=== PATIENT | male | born 1940 | race Caucasian/White ===

== ENCOUNTER 2017-09-15 09:47 | Outpatient (CLI) | payer MEDICARE ==
--- NOTE | 2017-09-15 11:50 | ULT ---
ULTRASOUND ABDOMINAL AORTA: Date: 09/15/17 HISTORY: Screening for abdominal aortic aneurysm. Patient is a smoker. FINDINGS: The proximal aorta measures 2.7 x 1.2 cm, mid aorta 1.7 x 1.9 cm, and distal aorta 1.2 x 1.9 cm. The common iliac arteries also demonstrate no abnormal dilatation. IMPRESSION: No evidence of abdominal aortic aneurysm. POS: OFF
== END 2017-09-15 09:48 | disposition home or self-care (01) ==
LOC: SCSULT 09:47
PROVIDERS: ATTEND Family Medicine
DX: Z13.6 Encounter for screening for cardiovascular disorders (principal); Z00.00 Encounter for general adult medical examination without abnormal findings
CPT/HCPCS: 76775

== ENCOUNTER 2018-07-30 08:45 | Inpatient (IN) | payer MEDICARE ==
[2018-07-30] MEDS ORDERED: hydrALAZINE 20 MG/ML VIAL ONE ×2 (09:03→10:16)
[2018-07-30 09:21] LABS: #Basophils 0.1 thou/uL (0.0-0.2); #Lymphocytes 4.3 thou/uL (1.20-3.40); #Monocytes 0.6 thou/uL (0.11-0.59); #Neutrophils 3.7 thou/uL (1.40-6.50); %Basophils 0.6 % (0.0-1.0); %Eosinophils 0.5 % (0.0-10.0); %Lymphocytes 49.9 % (21.0-51.0); %Monocytes 6.6 % (0.0-10.0); %Neutrophils 42.4 % (42.0-75.0); Hemoglobin 14.9 g/dL (14.0-18.0); Mean Corpuscular HGB CONC 33.7 g/dL (32.0-36.0); Mean Corpuscular Hemoglobin 31.6 pg (27.0-31.0); Mean Corpuscular Volume 93.7 fL (78.0-98.0); Platelet Count 229 thou/uL (130-400); RBC Distribution Width 11.6 % (11.5-14.5); White Blood Cell (WBC) Count 8.6 thou/uL (4.8-10.8)
--- NOTE | 2018-07-30 09:29 | RAD ---
XR Chest 1 View Portable History: [Chest pain] Comparison: Radiograph July 22, 2018 Findings: Continued mild elevation right hemidiaphragm. Heart size mildly enlarged. Small effusions. No pneumothorax. No acute osseous abnormality. Impression: Similar examination of the chest with cardiomegaly, chronic elevation right hemidiaphragm and small effusions.
[2018-07-30 09:42] LABS: ALT (SGPT) 50 U/L (8-55); AST (SGOT) 24 U/L (5-34); Albumin 4.6 g/dL (3.4-4.8); Alkaline Phosphatase 93 U/L (40-150); Anion Gap 17 mmol/L (10-20); BUN (Urea Nitrogen) 23 mg/dL (8.4-25.7); Bilirubin, Total 1.2 mg/dL (0.2-1.2); Calc. Creatinine Clearance 0 mL/min (70-130); Calcium 10.9 mg/dL (7.8-10.44); Carbon Dioxide 27 mmol/L (23-31); Chloride 102 mmol/L (98-107); Estimated GFR-MDRD 48; Globulin 2.5 g/dL (2.4-3.5); Glucose 186 mg/dL (83-110); Lipase 36 U/L (8-78); Magnesium 1.8 mg/dL (1.6-2.6); Protein, Total 7.1 g/dL (5.8-8.1); Sodium 142 mmol/L (136-145)
[2018-07-30 10:01] LABS: CKMB 1.9 ng/mL (0-6.6)
[2018-07-30] MEDS ORDERED: cloNIDine 0.1 MG TAB PO SCH (11:00)
[2018-07-30] MEDS ORDERED: Ondansetron PF 4 MG/2 ML Vial IVP PRN (11:42)
[2018-07-30] MEDS ORDERED: Bisacodyl 5 MG TAB PO PRN (11:42)
[2018-07-30] MEDS ORDERED: Dextrose 5% in Water 1,000 ML IV PRN (11:42)
[2018-07-30] MEDS ORDERED: Dextrose 50% Abboject 50 ML SYRINGE SLOW IVP PRN (11:42)
--- NOTE | 2018-07-30 11:49 | CT ---
CT BRAIN WITHOUT CONTRAST: HISTORY: Speech changes. Dizziness. FINDINGS: Changes of cortical atrophy are present. No evidence of acute infarct, hemorrhage, midline shift, or abnormal extraaxial fluid collections is noted. The ventricular size is appropriate, and the basila r cisterns are patent. The bony calvarium is intact. The visualized paranasal sinuses and mastoid a ir cells are well aerated. IMPRESSION: No CT evidence of acute intracranial process. POS: [facility]
--- NOTE | 2018-07-30 12:27 | HP ---
PRIMARY CARE PROVIDER: Dr. Campos Castañeda. CHIEF COMPLAINT: Shortness of breath. HISTORY OF PRESENT ILLNESS: Mr. Grant stratton is a pleasant 77-year-old gentleman, who was seen at [facility] on 07/30/2018. He is able to provide some history. Collateral history was obtained from discussion with his by the bedside, discussion with emergency room physician, and review of medical records. Over the last several days, Mr. Burns has been feeling fatigued and dizzy. He has been sleeping most of the time. He was seen by his primary care provider. He was found to have low heart rate. This was approximately a week ago. Arrangements were made for Cardiology Clinic followup on 08/18. The patient started having difficulty finding words since last night. He was therefore brought to the emergency room. He denies any chest pain. He denies any nausea or vomiting. He denies any headaches. REVIEW OF SYSTEMS: All other systems reviewed and found to be negative. PAST MEDICAL HISTORY: 1. Benign prostate hypertrophy. 2. Peripheral neuropathy. 3. Diabetes mellitus. 4. Dyslipidemia. 5. Hypertension. PAST SURGICAL HISTORY: None. FAMILY HISTORY: Blastomycosis in his father. SOCIAL HISTORY: No history of tobacco use, alcohol use, or recreational drug use. CODE STATUS: I discussed his code status. He is full code. ALLERGIES: STATINS AND TETANUS TOXOID. CURRENT MEDICATIONS: 1. Nifedipine 30 mg daily. 2. Quinapril 5 mg daily. 3. Atenolol 100 mg daily. 4. Metformin 1000 mg 2 times a day. 5. Hydrochlorothiazide 25 mg daily. 6. Paroxetine 20 mg daily. 7. Januvia 100 mg daily. 8. Aspirin 81 mg daily. PHYSICAL EXAMINATION: GENERAL: On examination, Mr. Grant stratton is awake and alert, not in acute distress. VITAL SIGNS: Blood pressure is 191/101, pulse 75, respiratory rate 16, and oxygen saturation 98% on 2 L of oxygen. He is afebrile. When he initially presented to the emergency room, he had a pulse of 38 and respiratory rate of 30. Blood pressure was initially greater than 300/88. EYES: No scleral icterus. No conjunctival pallor. ENT: Moist mucosal membranes. No oropharyngeal erythema or exudates. NECK: Supple, nontender, trachea is midline. RESPIRATORY: Accessory muscles of breathing are not active. Chest wall movements are symmetric bilaterally. Lungs are clear to auscultation without wheeze, rhonchi, or crepitations. CARDIOVASCULAR: S1 and S2 are heard, regular. Peripheral pulses palpable. No carotid bruit. No pericardial rub. ABDOMEN: Soft, nontender. Bowel sounds heard. No hepatomegaly. No splenomegaly. NEUROLOGIC: The patient has difficulty finding words at times. Cranial nerves 2 through 12 are intact. Power is 5/5 in all 4 extremities. No focal motor or sensory deficits. Deep tendon reflexes 2+, plantars downgoing bilaterally. MUSCULOSKELETAL: Power is 5/5 in all 4 extremities. SKIN: The patient has malar flush. Nurse reports that it started, the patient came to the emergency room. LYMPHATIC: No cervical lymphadenopathy. PSYCHIATRIC: Normal mood. Normal affect. The patient is oriented to person, place, and time. LABORATORY AND DIAGNOSTIC DATA: Mr. Grant stratton's labs and investigations were reviewed. I reviewed his electrocardiogram, which shows third-degree heart block. I also reviewed his chest x-ray, which does not show any pulmonary infiltrates. He has an unremarkable CBC, elevated creatinine of 1.41, elevated calcium of 10.9, otherwise unremarkable comprehensive metabolic profile, normal lactic acid level of 1.8, normal lipase of 36, and indeterminate troponin-I of 0.045. ASSESSMENT AND PLAN: Mr. Grant stratton is a pleasant 77-year-old gentleman, who was seen at [facility] on July 30, 2018. His problem list includes: 1. Complete heart block: Mr. Burns is presenting with complete heart block. It appears to be improving after he came to the emergency room. He will be admitted to the hospital for further management. Cardiology Service has already been consulted by emergency room physician. The patient will be admitted to telemetry floor. We will hold beta felicia. 2. Elevated troponin: Could be secondary to renal failure. The patient denies any chest pain. We will trend troponin. 3. Diabetes mellitus type 2: We will start Accu-Cheks and insulin sliding scale. 4. Hypertensive urgency: We will start IV clonidine as needed. If the patient's blood pressure is uncontrolled, he may need to be admitted to critical care unit on Cardene drip. 5. Difficulty finding words: Could be secondary to hypertensive urgency or due to stroke or intracranial bleed. For now, we will check noncontrast CT scan of the brain to evaluate. Many thanks for allowing me to participate in your patient's care. Please feel free to contact me with any questions or concerns. LEVEL OF RISK: High. LEVEL OF COMPLEXITY: High. Job ID: [id number]
[2018-07-30 12:43] LABS: Troponin I 0.026 ng/mL (< 0.028)
[2018-07-30 12:48] VITALS: BMI 32.0
[2018-07-30] MEDS: HumaLOG 300 UNITS/3 ML VIAL SC PRN ×3 (13:38→22:30)
[2018-07-30] MEDS: NIFEdipine XL 30 MG TAB PO SCH (22:29)
--- NOTE | 2018-07-30 23:58 | CON ---
DATE OF CONSULTATION: HISTORY: Lazaro Burns Jr. is a pleasant 77-year-old white male, who over the last 3 or 4 days, has had increasing fatigue, dizziness and sleeping most of the day. Also, he would have episodes where he would have gasping respirations. He has had problems finding words when speaking. He denies any syncope. He was brought to the emergency room and found to have episodes of 2:1 AV blocks well as episodes of complete heart block and is admitted for further evaluation. He denies any chest pain. He denies any exertional shortness of breath. He has episodes of shortness of breath that basically are gasping respirations lasting 1 or 2 seconds at rest. PAST MEDICAL HISTORY: Diabetes, hypertension, hyperlipidemia, peripheral neuropathy, and benign prostatic hypertrophy. MEDICATIONS: 1. Augmentin b.i.d. 2. Aspirin 81 daily. 3. Atenolol 100 mg daily. 4. Hydrochlorothiazide 25 q.a.m.. 5. Eye drops. 6. Metformin 1000 mg b.i.d. 7. Milk thistle 150 daily. 8. Multivitamin daily. 9. Nifedipine 30 mg q.a.m. 10. Paroxetine 30 daily. 11. Prednisone dose pack. 12. Quinapril 5 mg q.a.m. 13. Januvia 100 mg daily. ALLERGIES: MUSCLE ACHES WITH STATINS AND TETANUS TOXOID. SOCIAL HISTORY: He smoked many years ago. He does not drink. FAMILY HISTORY: Negative for myocardial infarction. Father had blastomycosis. REVIEW OF SYSTEMS: A 10-point review of systems is otherwise unremarkable. PHYSICAL EXAMINATION: VITAL SIGNS: Blood pressure 174/78, pulse of 70. HEENT: PERRL. NECK: Supple. CHEST: Clear. CARDIAC: S1 and S2 normal without any S3, S4, or murmurs. ABDOMEN: Normal bowel sounds without tenderness or organomegaly. ABDOMEN: Obese. EXTREMITIES: Revealed no clubbing, cyanosis, or edema. NEUROLOGIC: Grossly intact. SKIN: Warm and dry. LABORATORY DATA: EKG reveals 2: 1 AV block with right bundle-branch block pattern. Echocardiogram revealed ejection fraction of 55% to 60% with evidence for diastolic dysfunction, mild left atrial enlargement, mild mitral regurgitation, aortic valve sclerosis, moderate aortic regurgitation and mild tricuspid regurgitation. Hemoglobin 14.9, hematocrit 44.1, white count 8600, platelets 229,000. Troponin I 0.045. Sodium 142, potassium 4.0, chloride 102, carbon dioxide 27, BUN 23, creatinine 1.41. BNP 512.1. IMPRESSION: 1. High-degree atrioventricular block with episodes of 2:1 atrioventricular block and complete heart block, on high-dose atenolol. 2. Hypertension. 3. Hyperlipidemia, intolerant to statins. 4. Diabetes. 5. Obesity. 6. Benign prostatic hypertrophy. PLAN: The patient's atenolol is being held at this time, although usually when people have this degree of AV block, it is a progressive disease. Overall, it is recommended that a pacemaker be placed. Risks of pacemaker insertion were discussed with the patient, and daughter including , infection, bleeding, blood clot formation, pneumothorax, reoperation for lead dislodgement, pericardial tamponade, etc. He understands and agrees to proceed. Job ID: [id number] MTDD
[2018-07-31] MEDS: cloNIDine 0.1 MG TAB PO PRN ×4 (00:41→16:44)
[2018-07-31 06:07] LABS: Anion Gap 14 mmol/L (10-20); BUN (Urea Nitrogen) 22 mg/dL (8.4-25.7); Calc. Creatinine Clearance 84 mL/min (70-130); Calcium 9.5 mg/dL (7.8-10.44); Carbon Dioxide 25 mmol/L (23-31); Chloride 107 mmol/L (98-107); Cholesterol 162 mg/dl (< 200 Desired); Estimated GFR-MDRD 66; Glucose 194 mg/dL (83-110); HDL Cholesterol 23 mg/dL (>60 Neg Risk); LDL Cholesterol, Calculated 118 mg/dL; Potassium 3.7 mmol/L (3.5-5.1); Sodium 142 mmol/L (136-145); Triglycerides 107 mg/dL (Less than 150)
[2018-07-31 06:36] LABS: Eosinophils 1 % (0-10); Hemoglobin 12.4 g/dL (14.0-18.0); Lymphocytes 42 % (21-51); MDiff Complete? YES; Mean Corpuscular HGB CONC 33.5 g/dL (32.0-36.0); Mean Corpuscular Hemoglobin 31.2 pg (27.0-31.0); Mean Corpuscular Volume 93.2 fL (78.0-98.0); Monocytes 8 % (0-10); Neutrophil 40 % (42-75); Platelet Count 160 thou/uL (130-400); RBC Distribution Width 11.6 % (11.5-14.5); Reactive Lymphocytes 9 % (0-10); Red Blood Cell (RBC) Count 3.96 mill/uL (4.70-6.10); White Blood Cell (WBC) Count 5.1 thou/uL (4.8-10.8)
[2018-07-31] MEDS ORDERED: Lisinopril 20 MG TAB PO SCH (08:00)
[2018-07-31] MEDS: Hydrochlorothiazide 25 MG TAB PO SCH (08:42)
[2018-07-31] MEDS: PARoxetine 20 MG TAB PO SCH (08:42)
[2018-07-31] MEDS: NIFEdipine XL 30 MG TAB PO SCH ×2 (08:42→20:29)
[2018-07-31] MEDS: Aspirin Chewable 81 MG TAB PO SCH (08:42)
[2018-07-31] MEDS: Enoxaparin Sodium 40 MG/0.4 ML SYRINGE SC SCH (08:42)
[2018-07-31] MEDS: Nitroglycerin 0.4 MG TAB (25 Tab Bottle) SL SCH ×2 (08:43→12:11)
[2018-07-31] MEDS: HumaLOG 300 UNITS/3 ML VIAL SC PRN ×2 (11:27→20:31)
[2018-07-31] MEDS: Acetaminophen 325 MG TAB PO PRN (12:19)
--- NOTE | 2018-07-31 14:53 | PDOC.PN ---
- Subjective Encounter Start Date: 07/31/18 Encounter Start Time: 08:45 Subjective: pt up in bed no complains, feels well - Objective Resuscitation Status - Order Detail: 07/30/18 11:42 Resuscitation Status Routine Resuscitation Status: FULL: Full Resuscitation Discussed with: patient and Vital Signs & Weight: Vital Signs (12 hours) Temp Pulse Resp BP BP BP Pulse Ox 07/31/18 12:17 58 L 157/79 H 07/31/18 12:10 209/83 H 07/31/18 12:00 97.8 F 56 L 20 209/83 H 95 07/31/18 09:50 65 161/71 H 07/31/18 08:42 58 L 221/88 H 07/31/18 08:41 221/88 H 07/31/18 07:50 96 07/31/18 07:49 97.5 F L 58 L 20 221/88 H 96 07/31/18 05:41 224/94 H 07/31/18 04:00 97.5 F L 64 16 224/94 H 95 Weight Weight 236 lb 4 oz I&O: 07/30/18 07/31/18 08/01/18 06:59 06:59 06:59 Intake Total 540 600 Output Total 800 Balance -260 600 Result Diagrams: 07/31/18 05:02 07/31/18 05:02 Additional Labs: Accuchecks 07/31/18 07/30/18 07/30/18 10:35 20:29 16:31 POC Glucose 261 H 163 H 231 H Phys Exam - Physical Examination Respiratory: no wheezing, no rales, no rhonchi, wheezing present, clear to auscultation bilateral Cardiovascular: RRR, no significant murmur, no rub, gallop, irregular Gastrointestinal: soft, non-tender, no distention, positive bowel sounds Musculoskeletal: no edema, pulses present, edema present Dx/Plan (1) Complete heart block Code(s): I44.2 - ATRIOVENTRICULAR BLOCK, COMPLETE Status: Acute (2) Hypertensive urgency Code(s): I16.0 - HYPERTENSIVE URGENCY Status: Acute (3) Elevated troponin Code(s): R74.8 - ABNORMAL LEVELS OF OTHER SERUM ENZYMES Status: Acute - Plan pt started back on home meds and prn meds for his elevated bp -: pt to undergo pacemaker on thursday -: pt feels a lot better now. -: will check hbg alc * . Review of Systems - Review of Systems Respiratory: negative: Cough, Dry, Shortness of Breath, Hemoptysis, SOB with Excertion, Pleuritic Pain, Sputum, Wheezing Cardiovascular: negative: chest pain, palpitations, orthopnea, paroxysmal nocturnal dyspnea, edema, light headedness, other Gastrointestinal: negative: Nausea, Vomiting, Abdominal Pain, Diarrhea, Constipation, Melena, Hematochezia, Other - Medications/Allergies Allergies/Adverse Reactions: Allergies Allergy/AdvReac Type Severity Reaction Status Date / Time [id number] Reductase Allergy Verified 07/30/18 10:46 Inhibitor tetanus toxoid, adsorbed Allergy Verified 07/30/18 10:46 Medications: Current Medications Acetaminophen (Tylenol) 650 mg PO Q4H PRN PRN Reason: Headache/Fever/Mild Pain (1-3) Last Admin: 07/31/18 12:19 Dose: 650 mg Aspirin (Aspirin Chewable) 81 mg PO DAILY [facility] Last Admin: 07/31/18 08:42 Dose: 81 mg Bisacodyl (Dulcolax) 10 mg PO DAILYPRN PRN PRN Reason: Constipation Clonidine (Catapres) 0.1 mg PO Q4H PRN PRN Reason: SBP Greater Than 180 Last Admin: 07/31/18 12:10 Dose: 0.1 mg Dextrose/Water (Dextrose 50%) 25 gm SLOW IVP PRN PRN PRN Reason: Hypoglycemia Enoxaparin Sodium (Lovenox) 40 mg SC 0900 [facility] Last Admin: 07/31/18 08:42 Dose: 40 mg Glucagon (Glucagon) 1 mg IM PRN PRN PRN Reason: Hypoglycemia Hydrochlorothiazide (Hydrochlorothiazide) 25 mg PO QAM [facility] Last Admin: 07/31/18 08:42 Dose: 25 mg Dextrose/Water (D5w) 1,000 mls @ 0 mls/hr IV .Q0M PRN PRN Reason: Hypoglycemia Insulin Human Lispro (Humalog) 0 units SC .MILD SLIDING SCALE PRN PRN Reason: Mild Correctional Scale Last Admin: 07/31/18 11:27 Dose: 4 unit Lisinopril (Zestril) 20 mg PO BID [facility] Nifedipine (Procardia Xl) 30 mg PO BID [facility] Last Admin: 05/11/19 08:42 Dose: 30 mg Ondansetron HCl (Zofran) 4 mg IVP Q6H PRN PRN Reason: Nausea/Vomiting Last Admin: 07/31/18 12:32 Dose: 4 mg Paroxetine HCl (Paxil) 20 mg PO DAILY [facility] Last Admin: 07/31/18 08:42 Dose: 20 mg Sodium Chloride (Flush - Normal Saline) 10 ml IVF Q12HR [facility] Last Admin: 07/31/18 08:42 Dose: 10 ml Sodium Chloride (Flush - Normal Saline) 10 ml IVF PRN PRN PRN Reason: Saline Flush
[2018-07-31] MEDS: Lisinopril 20 MG TAB PO SCH (20:30)
[2018-08-01] MEDS: cloNIDine 0.1 MG TAB PO PRN ×3 (00:41→23:52)
[2018-08-01] MEDS: HumaLOG 300 UNITS/3 ML VIAL SC PRN ×2 (06:08→12:37)
[2018-08-01 06:11] LABS: Hemoglobin A1c 6.5 % (4.0-6.0)
[2018-08-01 06:23] LABS: Anion Gap 12 mmol/L (10-20); BUN (Urea Nitrogen) 17 mg/dL (8.4-25.7); Calc. Creatinine Clearance 81 mL/min (70-130); Calcium 9.2 mg/dL (7.8-10.44); Carbon Dioxide 26 mmol/L (23-31); Chloride 107 mmol/L (98-107); Estimated GFR-MDRD 63; Glucose 179 mg/dL (83-110); Potassium 4.6 mmol/L (3.5-5.1); Sodium 140 mmol/L (136-145)
[2018-08-01] MEDS: Aspirin Chewable 81 MG TAB PO SCH (08:21)
[2018-08-01] MEDS: Hydrochlorothiazide 25 MG TAB PO SCH (08:22)
[2018-08-01] MEDS: Lisinopril 20 MG TAB PO SCH ×2 (08:23→20:35)
[2018-08-01] MEDS: PARoxetine 20 MG TAB PO SCH (08:23)
[2018-08-01] MEDS: NIFEdipine XL 30 MG TAB PO SCH (08:23)
[2018-08-01] MEDS: Enoxaparin Sodium 40 MG/0.4 ML SYRINGE SC SCH (08:24)
[2018-08-01] MEDS ORDERED: NIFEdipine XL 90 MG TAB PO SCH (09:00)
[2018-08-01] MEDS ORDERED: NIFEdipine XL 60 MG TAB PO SCH (09:00)
--- NOTE | 2018-08-01 15:28 | PDOC.PN ---
- Subjective Encounter Start Date: 08/01/18 Encounter Start Time: 11:15 Subjective: pt up in bed no complains - Objective Resuscitation Status - Order Detail: 07/30/18 11:42 Resuscitation Status Routine Resuscitation Status: FULL: Full Resuscitation Discussed with: patient and Vital Signs & Weight: Vital Signs (12 hours) Temp Pulse Pulse Resp BP BP BP 08/01/18 12:00 97.7 F 61 16 08/01/18 10:16 62 163/76 H 08/01/18 08:50 56 L 195/84 H 08/01/18 08:30 08/01/18 08:23 54 L 185/89 H 08/01/18 08:00 97.3 F L 55 L 16 08/01/18 06:06 163/84 H 08/01/18 04:32 188/88 H 08/01/18 04:00 97.2 F L 60 16 BP Pulse Ox 08/01/18 12:00 212/92 H 93 L 08/01/18 10:16 08/01/18 08:50 08/01/18 08:30 95 08/01/18 08:23 08/01/18 08:00 155/89 H 95 08/01/18 06:06 08/01/18 04:32 08/01/18 04:00 188/88 H 93 L Weight Weight 236 lb 4 oz I&O: 07/31/18 08/01/18 08/02/18 06:59 06:59 06:59 Intake Total 540 1300 500 Output Total 800 600 Balance -260 700 500 Result Diagrams: 07/31/18 05:02 08/01/18 05:23 Additional Labs: Accuchecks 08/01/18 08/01/18 07/31/18 10:51 05:57 20:29 POC Glucose 224 H 178 H 232 H 07/31/18 07/31/18 16:30 06:04 POC Glucose 166 H 196 H Phys Exam - Physical Examination Respiratory: no wheezing, no rales, no rhonchi, wheezing present, clear to auscultation bilateral Cardiovascular: RRR, no significant murmur, no rub, gallop, irregular Gastrointestinal: soft, non-tender, no distention, positive bowel sounds Musculoskeletal: no edema, pulses present, edema present Dx/Plan (1) Complete heart block Code(s): I44.2 - ATRIOVENTRICULAR BLOCK, COMPLETE Status: Acute (2) Hypertensive urgency Code(s): I16.0 - HYPERTENSIVE URGENCY Status: Acute (3) Elevated troponin Code(s): R74.8 - ABNORMAL LEVELS OF OTHER SERUM ENZYMES Status: Acute - Plan will increase his procardia. pt going for pacemaker placement in am -: will check tsh in am * . Review of Systems - Review of Systems Respiratory: negative: Cough, Dry, Shortness of Breath, Hemoptysis, SOB with Excertion, Pleuritic Pain, Sputum, Wheezing Cardiovascular: negative: chest pain, palpitations, orthopnea, paroxysmal nocturnal dyspnea, edema, light headedness, other Gastrointestinal: negative: Nausea, Vomiting, Abdominal Pain, Diarrhea, Constipation, Melena, Hematochezia, Other - Medications/Allergies Allergies/Adverse Reactions: Allergies Allergy/AdvReac Type Severity Reaction Status Date / Time Ogvnier-Phx-Lgg Reductase Allergy Verified 07/30/18 10:46 Inhibitor tetanus toxoid, adsorbed Allergy Verified 07/30/18 10:46 Medications: Current Medications Acetaminophen (Tylenol) 650 mg PO Q4H PRN PRN Reason: Headache/Fever/Mild Pain (1-3) Last Admin: 07/31/18 12:19 Dose: 650 mg Aspirin (Aspirin Chewable) 81 mg PO DAILY [facility] Last Admin: 08/01/18 08:21 Dose: 81 mg Bisacodyl (Dulcolax) 10 mg PO DAILYPRN PRN PRN Reason: Constipation Clonidine (Catapres) 0.1 mg PO Q4H PRN PRN Reason: SBP Greater Than 180 Last Admin: 08/01/18 04:32 Dose: 0.1 mg Dextrose/Water (Dextrose 50%) 25 gm SLOW IVP PRN PRN PRN Reason: Hypoglycemia Enoxaparin Sodium (Lovenox) 40 mg SC 0900 [facility] Last Admin: 08/01/18 08:24 Dose: 40 mg Glucagon (Glucagon) 1 mg IM PRN PRN PRN Reason: Hypoglycemia Hydrochlorothiazide (Hydrochlorothiazide) 25 mg PO QAM [facility] Last Admin: 08/01/18 08:22 Dose: 25 mg Dextrose/Water (D5w) 1,000 mls @ 0 mls/hr IV .Q0M PRN PRN Reason: Hypoglycemia Insulin Human Lispro (Humalog) 0 units SC .MILD SLIDING SCALE PRN PRN Reason: Mild Correctional Scale Last Admin: 08/01/18 12:37 Dose: 3 unit Lisinopril (Zestril) 20 mg PO BID [facility] Last Admin: 08/01/18 08:23 Dose: 20 mg Metoprolol Tartrate (Lopressor) 50 mg PO ONE [facility] Nifedipine (Procardia Xl) 90 mg PO DAILY [facility] Nitroglycerin (Nitrostat) 0.4 mg SL NOW [facility] Ondansetron HCl (Zofran) 4 mg IVP Q6H PRN PRN Reason: Nausea/Vomiting Last Admin: 07/31/18 12:32 Dose: 4 mg Paroxetine HCl (Paxil) 20 mg PO DAILY [facility] Last Admin: 08/01/18 08:23 Dose: 20 mg Sodium Chloride (Flush - Normal Saline) 10 ml IVF Q12HR [facility] Last Admin: 08/01/18 08:24 Dose: 10 ml Sodium Chloride (Flush - Normal Saline) 10 ml IVF PRN PRN PRN Reason: Saline Flush
[2018-08-01] MEDS ORDERED: Metoprolol Tartrate 50 MG TAB PO SCH (15:30)
[2018-08-01] MEDS ORDERED: Nitroglycerin 0.4 MG TAB (25 Tab Bottle) SL SCH (15:30)
[2018-08-01] MEDS: Acetaminophen 325 MG TAB PO PRN (16:00)
[2018-08-01] MEDS ORDERED: hydrALAZINE 25 MG TAB PO SCH (21:00)
[2018-08-02] MEDS: cloNIDine 0.1 MG TAB PO PRN (04:15)
[2018-08-02] MEDS ORDERED: Gentamicin 80 MG/2 ML VIAL ONE (08:03)
[2018-08-02] MEDS ORDERED: CEFAZOLIN 1 GM VIAL ONE (08:03)
[2018-08-02] MEDS ORDERED: NIFEdipine XL 90 MG TAB PO SCH (09:00)
[2018-08-02] MEDS ORDERED: Hydrochlorothiazide 25 MG TAB PO SCH (09:00)
[2018-08-02] MEDS ORDERED: Fentanyl 100 MCG/2 ML VIAL ONE (09:15)
[2018-08-02] MEDS ORDERED: Midazolam HCl 2 mg/2 ml Vial ONE (09:15)
[2018-08-02] MEDS ORDERED: Lidocaine 1% (PF) 30 ML VIAL ONE (10:08)
[2018-08-02] MEDS ORDERED: Acetaminophen/Codeine 30-300mg Tablet PO PRN (10:43)
[2018-08-02] MEDS ORDERED: Metoprolol Tartrate 100 MG TAB PO SCH (11:00)
--- NOTE | 2018-08-02 11:10 | RAD ---
XR Chest 1 View Portable HISTORY: Postcardiac device placement COMPARISON: 07/30/2018 FINDINGS: There has been interval placement of a left-sided pacer device with bipolar leads in the ri ght atrium and the right ventricle. There is continued elevation of the right hemidiaphragm. The heart size is normal. The lungs are well expanded without focal areas of consolidation, pneumothorax or pleural effusions. IMPRESSION: No radiographic evidence of acute cardiopulmonary process.
[2018-08-02] MEDS: NIFEdipine XL 30 MG TAB PO SCH (11:33)
[2018-08-02] MEDS: Aspirin Chewable 81 MG TAB PO SCH (11:33)
[2018-08-02] MEDS: PARoxetine 20 MG TAB PO SCH (11:33)
[2018-08-02] MEDS: HumaLOG 300 UNITS/3 ML VIAL SC PRN ×2 (11:47→20:37)
[2018-08-02] MEDS ORDERED: Iopamidol 370 76% 50 ML VIAL FS ONE (11:48)
[2018-08-02] MEDS: Lisinopril 20 MG TAB PO SCH (11:48)
[2018-08-02] MEDS: Acetaminophen/Codeine 30-300mg Tablet PO PRN (12:36)
--- NOTE | 2018-08-02 15:14 | PDOC.PN ---
- Subjective Encounter Start Date: 08/02/18 Encounter Start Time: 10:30 Subjective: pt up in bed no complains - Objective Resuscitation Status - Order Detail: 07/30/18 11:42 Resuscitation Status Routine Resuscitation Status: FULL: Full Resuscitation Discussed with: patient and Vital Signs & Weight: Vital Signs (12 hours) Temp Pulse Resp BP BP BP Pulse Ox 08/02/18 12:38 59 L 151/79 H 08/02/18 11:48 182/83 H 08/02/18 11:33 60 182/83 H 08/02/18 11:32 97.8 F 60 20 165/81 H 96 08/02/18 10:47 98.3 F 60 18 173/78 H 95 08/02/18 08:20 97 08/02/18 08:10 57 L 177/97 H 08/02/18 07:27 97.6 F 53 L 20 192/80 H 97 08/02/18 05:35 58 L 162/80 H 08/02/18 04:15 184/82 H 08/02/18 04:00 97.5 F L 62 19 184/82 H 96 Weight Weight 236 lb 4 oz I&O: 08/01/18 08/02/18 08/03/18 06:59 06:59 06:59 Intake Total 1300 1270 Output Total 600 700 Balance 700 570 Result Diagrams: 07/31/18 05:02 08/01/18 05:23 Additional Labs: Accuchecks 08/02/18 08/02/18 08/01/18 10:53 06:26 21:19 POC Glucose 213 H 188 H 198 H 08/01/18 16:49 POC Glucose 146 H Phys Exam - Physical Examination Neck: no nodes, no JVD, supple, full ROM Respiratory: no wheezing, no rales, no rhonchi, wheezing present, clear to auscultation bilateral Cardiovascular: RRR, no significant murmur, no rub, gallop, irregular Gastrointestinal: soft, non-tender, no distention, positive bowel sounds Dx/Plan (1) Complete heart block Code(s): I44.2 - ATRIOVENTRICULAR BLOCK, COMPLETE Status: Acute (2) Hypertensive urgency Code(s): I16.0 - HYPERTENSIVE URGENCY Status: Acute (3) Elevated troponin Code(s): R74.8 - ABNORMAL LEVELS OF OTHER SERUM ENZYMES Status: Acute - Plan s/p pacemaker placement -: will continue current bp meds for now * . Review of Systems - Review of Systems Respiratory: negative: Cough, Dry, Shortness of Breath, Hemoptysis, SOB with Excertion, Pleuritic Pain, Sputum, Wheezing Cardiovascular: negative: chest pain, palpitations, orthopnea, paroxysmal nocturnal dyspnea, edema, light headedness, other Gastrointestinal: negative: Nausea, Vomiting, Abdominal Pain, Diarrhea, Constipation, Melena, Hematochezia, Other Genitourinary: negative: Dysuria, Frequency, Incontinence, Hematuria, Retention , Other - Medications/Allergies Allergies/Adverse Reactions: Allergies Allergy/AdvReac Type Severity Reaction Status Date / Time Zihvbny-Trp-Gpf Reductase Allergy Verified 07/30/18 10:46 Inhibitor tetanus toxoid, adsorbed Allergy Verified 07/30/18 10:46 Medications: Current Medications Acetaminophen (Tylenol) 650 mg PO Q4H PRN PRN Reason: Headache/Fever/Mild Pain (1-3) Last Admin: 08/01/18 16:00 Dose: 650 mg Acetaminophen/Codeine Phosphate (Tylenol #3) 1 tab PO Q4H PRN PRN Reason: Mild Pain (1-3) Last Admin: 08/02/18 12:36 Dose: 1 tab Acetaminophen/Codeine Phosphate (Tylenol #3) 2 tab PO Q4H PRN PRN Reason: Moderate Pain (4-6) Aspirin (Aspirin Chewable) 81 mg PO DAILY [facility] Last Admin: 08/02/18 11:33 Dose: 81 mg Bisacodyl (Dulcolax) 10 mg PO DAILYPRN PRN PRN Reason: Constipation Cephalexin (Keflex) 250 mg PO TID [facility] Stop: 08/12/18 15:01 Clonidine (Catapres) 0.1 mg PO Q4H PRN PRN Reason: SBP Greater Than 180 Last Admin: 08/02/18 04:15 Dose: 0.1 mg Dextrose/Water (Dextrose 50%) 25 gm SLOW IVP PRN PRN PRN Reason: Hypoglycemia Glucagon (Glucagon) 1 mg IM PRN PRN PRN Reason: Hypoglycemia Hydrochlorothiazide (Hydrochlorothiazide) 25 mg PO DAILY [facility] Dextrose/Water (D5w) 1,000 mls @ 0 mls/hr IV .Q0M PRN PRN Reason: Hypoglycemia Insulin Human Lispro (Humalog) 0 units SC .MILD SLIDING SCALE PRN PRN Reason: Mild Correctional Scale Last Admin: 08/02/18 11:47 Dose: 3 unit Lisinopril (Zestril) 5 mg PO DAILY [facility] Metoprolol Succinate (Toprol Xl) 200 mg PO DAILY [facility] Metoprolol Tartrate (Lopressor) 100 mg PO 1999 [facility] Stop: 08/02/18 22:00 Nifedipine (Procardia Xl) 30 mg PO DAILY [facility] Last Admin: 08/02/18 11:33 Dose: 30 mg Ondansetron HCl (Zofran) 4 mg IVP Q6H PRN PRN Reason: Nausea/Vomiting Last Admin: 07/31/18 12:32 Dose: 4 mg Paroxetine HCl (Paxil) 20 mg PO DAILY [facility] Last Admin: 08/02/18 11:33 Dose: 20 mg Sodium Chloride (Flush - Normal Saline) 10 ml IVF Q12HR [facility] Last Admin: 08/02/18 11:34 Dose: 10 ml Sodium Chloride (Flush - Normal Saline) 10 ml IVF PRN PRN PRN Reason: Saline Flush
[2018-08-02] MEDS: Cephalexin 250 MG CAP PO SCH ×2 (16:00→20:36)
[2018-08-02] MEDS ORDERED: Metoprolol Tartrate 50 MG TAB PO SCH (20:00)
[2018-08-03] MEDS: cloNIDine 0.1 MG TAB PO PRN ×2 (04:37→15:58)
[2018-08-03] MEDS: HumaLOG 300 UNITS/3 ML VIAL SC PRN ×3 (06:41→21:50)
--- NOTE | 2018-08-03 07:58 | OP ---
DATE OF PROCEDURE: 08/02/2018 PROCEDURE PERFORMED: Permanent pacemaker placement. INDICATION: Complete heart block, 2:1 AV block. DESCRIPTION OF PROCEDURE: The patient was brought to cardiac rn cardiac cath and the left subclavian was prepped and draped. The patient was given Versed 1 mg and fentanyl 25 mg for 1 hour of IV moderate conscious sedation. 1% lidocaine was infiltrated into the area. Venogram was performed using a 50:50 mix of contrast and saline for location of the subclavian vein. A J-wire was then placed into the left subclavian vein. Pacemaker pocket was manufactured using blunt and sharp dissection with electrocautery for hemostasis. An antibiotic solution soaked gauze was placed into the pocket. A second J-wire was then placed into the left subclavian vein. Using 7-[employer] [place]ian peel-away sheath, the atrial and ventricular leads were inserted and the sheath was removed. Ventricular lead was advanced to the RV apex and screwed into place. The atrial lead was screwed into the right atrium. Right atrial lead - P-wave 4.1, impedance 732, threshold 1.5 V. With 10 V, there was no muscle or diaphragmatic stimulation. Right ventricular lead - R-wave 10.4, impedance 732, threshold 0.5. With 10 V, there was no muscle or diaphragmatic stimulation. The tabs on the suture tie-downs were removed and both leads were secured in place with 2 sutures of 0 silk. The antibiotic solution soaked gauze in the subcutaneous pocket was removed and this was irrigated with copious amounts of antibiotic solution. The leads were attached to the pacemaker generator and this was placed into the pocket and secured in placed with 1 suture of 0 silk. The incision was closed using 2 layers of running 3-0 Vicryl, one layer of running 4-0 Vicryl. Dermabond was placed on the incision. The patient tolerated the procedure well. Job ID: [id number]
[2018-08-03] MEDS ORDERED: Lisinopril 5 MG TAB PO SCH (09:00)
[2018-08-03] MEDS: Cephalexin 250 MG CAP PO SCH ×3 (09:07→20:15)
[2018-08-03] MEDS: PARoxetine 20 MG TAB PO SCH (09:09)
[2018-08-03] MEDS: NIFEdipine XL 30 MG TAB PO SCH ×2 (09:09→20:15)
[2018-08-03] MEDS: Hydrochlorothiazide 25 MG TAB PO SCH (09:09)
[2018-08-03] MEDS: Aspirin Chewable 81 MG TAB PO SCH (09:10)
[2018-08-03] MEDS: Acetaminophen/Codeine 30-300mg Tablet PO PRN (09:11)
[2018-08-03 09:22] LABS: Hemoglobin 14.7 g/dL (14.0-18.0); Mean Corpuscular HGB CONC 34.1 g/dL (32.0-36.0); Mean Corpuscular Hemoglobin 31.8 pg (27.0-31.0); Mean Corpuscular Volume 93.1 fL (78.0-98.0); Mean Platelet Volume 8.1 fL (7.4-10.4); Platelet Count 239 thou/uL (130-400); RBC Distribution Width 11.5 % (11.5-14.5); Red Blood Cell (RBC) Count 4.62 mill/uL (4.70-6.10); White Blood Cell (WBC) Count 8.7 thou/uL (4.8-10.8)
[2018-08-03 09:36] LABS: Anion Gap 14 mmol/L (10-20); BUN (Urea Nitrogen) 20 mg/dL (8.4-25.7); Calc. Creatinine Clearance 75 mL/min (70-130); Calcium 9.6 mg/dL (7.8-10.44); Carbon Dioxide 24 mmol/L (23-31); Chloride 104 mmol/L (98-107); Estimated GFR-MDRD 58; Glucose 218 mg/dL (83-110); Potassium 4.4 mmol/L (3.5-5.1); Sodium 138 mmol/L (136-145)
[2018-08-03 09:50] LABS: Band 1 % (5-11); Eosinophils 3 % (0-10); Lymphocytes 52 % (21-51); MDiff Complete? YES; Monocytes 4 % (0-10); Neutrophil 40 % (42-75); RBC Morphology Normal
--- NOTE | 2018-08-03 10:28 | PQF ---
ELIEZER MARCOS JR GEORGE ENRIQUE HOLCOMB [id number] [facility] [id number] CLINICAL DOCUMENTATION IMPROVEMENT CLARIFICATION FORM: ICD-10 Updated PLEASE DO AN ADDENDUM TO THE PROGRESS NOTE WITH ANY DOCUMENTATION UPDATES OR ADDITIONS AND CARRY THROUGH TO DC SUMMARY. THANK YOU. DATE: 08/03/2018 ATTN:DR. Jeffrey HOLCOMB Please exercise your independent, professional judgment in responding to the clarification form. Clinical indicators are provided on the bottom of this form for your review. Please check appropriate box(s): [ ] NSTEMI (VT type I) [x ] NSTEMI due to Demand Ischemia (AMI Type II) [ ] Demand Ischemia without VT [ ]Other [ ]Unable to Determine In addition, please specify: Present on Admission (POA): [x ] Yes [ ] No [ ] Unable to determine CLINICAL INDICATORS - SIGNS / SYMPTOMS / LABS 07/30 TROPONIN I 0.045 0.026 0.040 07/30 ED PHYSICIAN DX: SYMPTOMATIC HEART BLOCK, HTN, SYMPTOMATIC BRADYCARDIA 07/30 H & P (DEVAN) ASSESSMENT AND PLAN 2). ELEVATED TROPONIN: COULD BE DUE TO RENAL FAILURE. THE PATIENT DENIES ANY CHEST PAIN. WE WILL TREND TROPONIN 08/02 PN (ZHANG) DX:PLAN 1) COMPLETE HEART BLOCK, 2) HYPERTENSIVE URGENCY, 3) ELEVATED TROPONIN RISK: OBESITY /BMI 32.0 ( H & P) HYPERTENSIVE URGENCY ( H & P) COMPLETE HEART BLOCK ( H & P) HX OF HTN (H & P) HX OF DM ( H & P) TREATMENTS: CARDIOLOGY CONSULT 07/30 REWRITE EDITOR PROCEDURE, DUAL PACEMAKER PLACEMENT THANK YOU! MAKENNA (This form is maintained as a part of the permanent medical record) LAMINE
[2018-08-03] MEDS ORDERED: Bisacodyl 5 MG TAB PO SCH (16:30)
[2018-08-03] MEDS ORDERED: Polyethylene Glycol 3350 17 GM Packet PO SCH (16:30)
--- NOTE | 2018-08-03 16:51 | EKG ---
Test Reason : Blood Pressure : / mmHG Vent. Rate : 060 BPM Atrial Rate : 060 BPM P-R Int : 186 ms QRS Dur : 146 ms QT Int : 480 ms P-R-T Axes : 022 -73 036 degrees QTc Int : 480 ms Electronic atrial pacemaker Right bundle branch block Left anterior fascicular block Bifascicular block Voltage criteria for left ventricular hypertrophy Cannot rule out Septal infarct , age undetermined Abnormal ECG When compared with ECG of 30-JUL-2018 08:48, (Unconfirmed) Electronic atrial pacemaker has replaced Sinus rhythm Minimal criteria for Septal infarct are now Present Confirmed by DR. Tobias SIMMS ([id number]) on 08/03/2018 4:51:17 PM Referred By: ROBERTO Confirmed By:DR. Tobias SIMMS
--- NOTE | 2018-08-03 18:29 | PDOC.PN ---
- Subjective Encounter Start Date: 08/03/18 Encounter Start Time: 10:45 Subjective: pt up in bed no complains - Objective Resuscitation Status - Order Detail: 07/30/18 11:42 Resuscitation Status Routine Resuscitation Status: FULL: Full Resuscitation Discussed with: patient and Vital Signs & Weight: Vital Signs (12 hours) Temp Pulse Pulse Pulse Resp BP BP 08/03/18 16:00 97.8 F 60 20 08/03/18 15:58 198/88 H 08/03/18 12:00 97.6 F 59 L 18 08/03/18 11:10 60 60 193/79 H 08/03/18 10:40 08/03/18 09:09 59 L 201/95 H 08/03/18 09:07 59 L 201/95 H 08/03/18 08:00 08/03/18 07:31 97.7 F 59 L 18 08/03/18 06:47 BP BP Pulse Ox 08/03/18 16:00 198/88 H 93 L 08/03/18 15:58 08/03/18 12:00 167/91 H 94 L 08/03/18 11:10 167/91 H 08/03/18 10:40 151/81 H 08/03/18 09:09 08/03/18 09:07 08/03/18 08:00 95 08/03/18 07:31 201/95 H 95 08/03/18 06:47 96 Weight Weight 236 lb 4 oz I&O: 08/02/18 08/03/18 08/04/18 06:59 06:59 06:59 Intake Total 1270 750 780 Output Total 700 950 800 Balance 570 -200 -20 Result Diagrams: 08/03/18 09:02 08/03/18 09:02 Additional Labs: Accuchecks 08/03/18 08/03/18 08/03/18 16:38 10:52 06:14 POC Glucose 147 H 179 H 159 H 08/02/18 19:31 POC Glucose 229 H Phys Exam - Physical Examination Respiratory: no wheezing, no rales, no rhonchi, wheezing present, clear to auscultation bilateral Cardiovascular: RRR, no significant murmur, no rub, gallop, irregular Gastrointestinal: soft, non-tender, no distention, positive bowel sounds Musculoskeletal: no edema, pulses present, edema present Dx/Plan (1) Complete heart block Code(s): I44.2 - ATRIOVENTRICULAR BLOCK, COMPLETE Status: Acute (2) Hypertensive urgency Code(s): I16.0 - HYPERTENSIVE URGENCY Status: Acute (3) Elevated troponin Code(s): R74.8 - ABNORMAL LEVELS OF OTHER SERUM ENZYMES Status: Acute - Plan s/p pacemaker placement -: will add clonidine hs -: pt eats a high salt diet at home. pt educated on low salt diet. tsh normal * . Review of Systems - Review of Systems Respiratory: negative: Cough, Dry, Shortness of Breath, Hemoptysis, SOB with Excertion, Pleuritic Pain, Sputum, Wheezing Cardiovascular: negative: chest pain, palpitations, orthopnea, paroxysmal nocturnal dyspnea, edema, light headedness, other - Medications/Allergies Allergies/Adverse Reactions: Allergies Allergy/AdvReac Type Severity Reaction Status Date / Time [id number] Reductase Allergy Verified 07/30/18 10:46 Inhibitor tetanus toxoid, adsorbed Allergy Verified 07/30/18 10:46 Medications: Current Medications Acetaminophen (Tylenol) 650 mg PO Q4H PRN PRN Reason: Headache/Fever/Mild Pain (1-3) Last Admin: 08/01/18 16:00 Dose: 650 mg Acetaminophen/Codeine Phosphate (Tylenol #3) 1 tab PO Q4H PRN PRN Reason: Mild Pain (1-3) Last Admin: 08/03/18 09:11 Dose: 1 tab Acetaminophen/Codeine Phosphate (Tylenol #3) 2 tab PO Q4H PRN PRN Reason: Moderate Pain (4-6) Aspirin (Aspirin Chewable) 81 mg PO DAILY [facility] Last Admin: 08/03/18 09:10 Dose: 81 mg Bisacodyl (Dulcolax) 10 mg PO DAILYPRN PRN PRN Reason: Constipation Cephalexin (Keflex) 250 mg PO TID [facility] Stop: 08/12/18 15:01 Last Admin: 08/03/18 15:58 Dose: 250 mg Clonidine (Catapres) 0.1 mg PO Q4H PRN PRN Reason: SBP Greater Than 180 Last Admin: 08/03/18 15:58 Dose: 0.1 mg Clonidine (Catapres) 0.1 mg PO HS [facility] Dextrose/Water (Dextrose 50%) 25 gm SLOW IVP PRN PRN PRN Reason: Hypoglycemia Glucagon (Glucagon) 1 mg IM PRN PRN PRN Reason: Hypoglycemia Hydrochlorothiazide (Hydrochlorothiazide) 25 mg PO DAILY [facility] Last Admin: 08/03/18 09:09 Dose: 25 mg Dextrose/Water (D5w) 1,000 mls @ 0 mls/hr IV .Q0M PRN PRN Reason: Hypoglycemia Insulin Human Lispro (Humalog) 0 units SC .MILD SLIDING SCALE PRN PRN Reason: Mild Correctional Scale Last Admin: 08/03/18 11:13 Dose: 2 unit Lisinopril (Zestril) 5 mg PO DAILY [facility] Last Admin: 08/03/18 09:07 Dose: 5 mg Lisinopril (Zestril) 20 mg PO NOW [facility] Stop: 08/03/18 20:30 Metoprolol Succinate (Toprol Xl) 200 mg PO DAILY [facility] Last Admin: 08/03/18 09:05 Dose: 200 mg Nifedipine (Procardia Xl) 30 mg PO DAILY [facility] Last Admin: 08/03/18 09:09 Dose: 30 mg Ondansetron HCl (Zofran) 4 mg IVP Q6H PRN PRN Reason: Nausea/Vomiting Last Admin: 07/31/18 12:32 Dose: 4 mg Paroxetine HCl (Paxil) 20 mg PO DAILY [facility] Last Admin: 08/03/18 09:09 Dose: 20 mg Sodium Chloride (Flush - Normal Saline) 10 ml IVF Q12HR [facility] Last Admin: 08/03/18 09:15 Dose: 10 ml Sodium Chloride (Flush - Normal Saline) 10 ml IVF PRN PRN PRN Reason: Saline Flush Last Admin: 08/03/18 09:15 Dose: 10 ml
[2018-08-03] MEDS ORDERED: Lisinopril 20 MG TAB PO SCH (18:30)
[2018-08-03] MEDS ORDERED: cloNIDine 0.1 MG TAB PO SCH (21:00)
[2018-08-04] MEDS: cloNIDine 0.1 MG TAB PO PRN (00:25)
[2018-08-04] MEDS: HumaLOG 300 UNITS/3 ML VIAL SC PRN ×2 (06:36→14:57)
[2018-08-04] MEDS ORDERED: Lisinopril 20 MG TAB PO SCH (09:00)
[2018-08-04] MEDS: PARoxetine 20 MG TAB PO SCH (09:03)
[2018-08-04] MEDS: Aspirin Chewable 81 MG TAB PO SCH (09:03)
[2018-08-04] MEDS: Hydrochlorothiazide 25 MG TAB PO SCH (09:03)
[2018-08-04] MEDS: NIFEdipine XL 30 MG TAB PO SCH (09:04)
[2018-08-04] MEDS: Cephalexin 250 MG CAP PO SCH ×2 (09:05→14:54)
[2018-08-04 11:42] VITALS: TEMP 97.6
[2018-08-04 15:01] VITALS: BP 175/88
== END 2018-08-04 15:18 | disposition home or self-care (01) | DRG 242 ==
LOC: ERS 08:45 → ERHOLD 10:27 → 2SE 12:22
PROVIDERS: ADMIT Internal Medicine; ATTEND Internal Medicine
PROC: 0JH606Z Insertion of Pacemaker, Dual Chamber into Chest Subcutaneous Tissue and Fascia, Open Approach (ICD-10-PCS; principal; 2018-08-02)
PROC: 02HK3JZ Insertion of Pacemaker Lead into Right Ventricle, Percutaneous Approach (ICD-10-PCS; 2018-08-02)
PROC: 02H63JZ Insertion of Pacemaker Lead into Right Atrium, Percutaneous Approach (ICD-10-PCS; 2018-08-02)
DX: I44.2 Atrioventricular block, complete (principal); I21.A1 Myocardial infarction type 2; N40.0 Benign prostatic hyperplasia without lower urinary tract symptoms; E11.42 Type 2 diabetes mellitus with diabetic polyneuropathy; E78.5 Hyperlipidemia, unspecified; I10 Essential (primary) hypertension; I16.0 Hypertensive urgency; F17.200 Nicotine dependence, unspecified, uncomplicated; E66.9 Obesity, unspecified; Z79.899 Other long term (current) drug therapy; Z88.8 Allergy status to other drugs, medicaments and biological substances; Z79.82 Long term (current) use of aspirin; Z79.84 Long term (current) use of oral hypoglycemic drugs; Z68.33 Body mass index [BMI] 33.0-33.9, adult
CPT/HCPCS: 33208; 36005; 36415; 36416; 70450; 71045; 75820; 80048; 80053; 80061; 82553; 83036; 83605; 83690; 83735; 84443; 84484; 85025; 93005; 93010; 93306; 93798; 96374; 96376; 99152; 99153; C1785; C1898; J0360; J0690; J1580; J1650; J2001; J2250; J2405; J3010; Q9967

== ENCOUNTER 2021-01-11 10:44 | Outpatient (CLI) | payer MEDICARE | END 2021-01-11 10:45 | disposition home or self-care (01) | LOC: LABBT 10:44 | PROVIDERS: ATTEND Thoracic Surgery (Cardiothoracic Vascular Surgery) | DX: Z01.818 Encounter for other preprocedural examination (principal); I25.10 Atherosclerotic heart disease of native coronary artery without angina pectoris; Z20.822 Contact with and (suspected) exposure to COVID-19 | CPT/HCPCS: 71046; 80048; 85027; 86850; 86900; 86901; U0003; U0005 ==

== ENCOUNTER 2021-01-11 10:45 | Inpatient (IN) | payer MEDICARE ==
[2021-01-11 11:37] LABS: Hemoglobin 14.2 g/dL (13.5-17.5); Mean Corpuscular HGB CONC 33.7 g/dL (32.0-36.0); Mean Corpuscular Hemoglobin 30.8 pg (27.0-33.0); Mean Corpuscular Volume 91.3 fl (81.2-95.1); Platelet Count 158 10x3/uL (150-450); RBC Distribution Width 12.8 % (11.5-14.5); Red Blood Cell (RBC) Count 4.61 10x6/uL (4.32-5.72); White Blood Cell (WBC) Count 6.9 10x3/uL (3.5-10.5)
[2021-01-11 11:56] LABS: Anion Gap 14 mmol/L (10-20); BUN (Urea Nitrogen) 24 mg/dL (8.4-25.7); Calc. Creatinine Clearance 0 mL/min (70-130); Calcium 9.6 mg/dL (7.8-10.44); Carbon Dioxide 27 mmol/L (23-31); Chloride 106 mmol/L (98-107); Glucose 94 mg/dL (83-110); Potassium 5.2 mmol/L (3.5-5.1); Sodium 142 mmol/L (136-145)
[2021-01-11 21:12] LABS: SARS-CoV-2 PCR by NAA Not Detected (NotDetected)
[2021-01-16] MEDS ORDERED: Bupivacaine PF 0.5% 30 ML VIAL ONE (06:16)
[2021-01-16] MEDS ORDERED: Dexamethasone 4 mg/ml Vial ONE (06:16)
[2021-01-16] MEDS ORDERED: Albumin 5% 500 ML ONE (06:16)
[2021-01-16] MEDS ORDERED: EPINEPHrine 1 MG/ML AMP ONE (06:16)
[2021-01-16] MEDS ORDERED: ceFAZolin 2 GM/DEX 5% 100 ML BAG ONE (06:23)
[2021-01-16] MEDS ORDERED: Fentanyl 250 MCG/5 ML VIAL ONE (06:39)
[2021-01-16] MEDS ORDERED: Midazolam HCl 5 mg/5 ml Vial ONE (06:39)
[2021-01-16] MEDS ORDERED: Heparin 10,000 UNITS/1 ML VIAL 30,000 UNITS in Sodium Chloride 0.9% 1,000 ML FS SCH (06:45)
[2021-01-16] MEDS ORDERED: Calcium Chloride 1 GM/10 ML Abboject SYRINGE ONE (07:37)
[2021-01-16] MEDS ORDERED: Thrombin 5000 UNITS/5 ML VIAL ONE (07:37)
[2021-01-16] MEDS ORDERED: Magnesium Sulfate 1 GM/2 ML VIAL ONE (07:37)
[2021-01-16] MEDS ORDERED: Vecuronium 10 MG VIAL ONE (07:37)
[2021-01-16] MEDS ORDERED: Mannitol 12.5 GM/50 ML ONE (07:37)
[2021-01-16] MEDS ORDERED: Potassium Chloride 60 MEQ/30 ML VIAL ONE (07:37)
[2021-01-16] MEDS ORDERED: Lidocaine 2% PF 100 mg/5 ml Syringe ONE (07:37)
[2021-01-16] MEDS ORDERED: PROPOFOL 200 MG/20 ML VIAL ONE (07:37)
[2021-01-16] MEDS ORDERED: Protamine Sulfate 250 MG/25 ML VIAL ONE (07:37)
[2021-01-16] MEDS ORDERED: Heparin 30,000 units/30 ml VIAL ONE (07:37)
[2021-01-16] MEDS ORDERED: Papaverine 60 MG/2 ML VIAL ONE (07:37)
[2021-01-16] MEDS ORDERED: Sodium Bicarb 50 MEQ/50 ML Abboject 8.4% SYRINGE ONE (07:37)
[2021-01-16] MEDS ORDERED: Aminocaproic Acid 5 GM/20 ML VIAL ONE (07:37)
[2021-01-16] MEDS ORDERED: Cardioplegic Soln 1,000 ML BAG ONE (07:37)
[2021-01-16] MEDS ORDERED: Heparin 5,000 UNITS/ML VIAL ONE (07:37)
[2021-01-16] MEDS ORDERED: Ondansetron PF 4 MG/2 ML Vial ONE (07:37)
[2021-01-16] MEDS ORDERED: Midazolam HCl 2 mg/2 ml Vial ONE (09:32)
[2021-01-16] MEDS ORDERED: Acetaminophen 325 MG TAB PO PRN (10:35)
[2021-01-16] MEDS ORDERED: Guaifenesin DM 100-10/5 ML UDCUP PO PRN (10:35)
[2021-01-16] MEDS ORDERED: Bisacodyl 10 MG SUPP PR PRN (10:35)
[2021-01-16] MEDS ORDERED: Norepinephrine 8 MG/0.9% NS 250 ML IVPB PRN (10:35)
[2021-01-16] MEDS ORDERED: Ondansetron PF 4 MG/2 ML Vial IVP PRN (10:35)
[2021-01-16] MEDS ORDERED: Hetastarch 6% 500 ML 500 ML IVPB PRN (10:35)
[2021-01-16] MEDS ORDERED: Fentanyl 100 MCG/2 ML VIAL SLOW IVP PRN ×2 (10:35)
[2021-01-16] MEDS ORDERED: Magnesium 2 GM/50 ML 2 GM in Premix Bag 1 BAG IVPB SCH (10:35)
[2021-01-16] MEDS ORDERED: Potassium Chloride 20 MEQ/100 ML PREMIX BAG IVPB PRN (10:35)
[2021-01-16] MEDS ORDERED: Mag-Al 1200 mg/1200 mg/30 ML UDCUP PO PRN (10:35)
[2021-01-16] MEDS ORDERED: Bisacodyl 5 MG TAB PO PRN (10:35)
[2021-01-16] MEDS ORDERED: D5 1/2 NS w/20 mEq KCL 1,000 ML IV SCH (10:35)
[2021-01-16] MEDS ORDERED: Nitroglycerin 50 MG/250 ML BOT 250 ML IVPB PRN (10:35)
[2021-01-16] MEDS ORDERED: Morphine 4 MG/ML VIAL SLOW IVP PRN (10:35)
[2021-01-16] MEDS ORDERED: Dextrose 50% Abboject 50 ML SYRINGE SLOW IVP PRN (11:00)
[2021-01-16] MEDS ORDERED: Dextrose 5% in Water 1,000 ML IV PRN (11:00)
[2021-01-16] MEDS ORDERED: Lantus 1000 UNITS/10 ML VIAL SC PRN (11:00)
[2021-01-16] MEDS ORDERED: Norepinephrine 8 MG in Dextrose 5% in Water 242 ML IVPB PRN (11:00)
[2021-01-16 11:03] LABS: Actual Bicarbonate (HCO3a) 22.7 mEq/L (22-28); CO2 Tension 48.1 mmHg (35.0-45.0); Calcium, Ionized (arterial) 1.29 mmol/L (1.12-1.30); Carboxyhemoglobin (COHb) 0.4 gm% (0.0-3.0); Hemoglobin (Hb) 11.8 g/dL (14.0-18.0); O2 Tension (PaO2), arterial 95.7 mmHg (> 60.0); Potassium - ABG Lab 4.52 mmol/L (3.70-5.30); pH, Arterial 7.29 (7.35-7.45)
[2021-01-16 11:05] LABS: ALV-art Gradient 271.975 mmHg (0-20); Puncture Site Arterial Line
[2021-01-16] MEDS: Ketorolac Tromethamine 30 MG/ML VIAL IVP SCH ×3 (11:17→23:39)
[2021-01-16] MEDS: HUMULIN R 100 UNITS in Sodium Chloride 0.9% 100 ML IVPB SCH ×2 (11:27→23:47)
[2021-01-16 11:33] LABS: Hemoglobin 11.6 g/dL (14.0-18.0); Mean Corpuscular HGB CONC 33.5 g/dL (32.0-36.0); Mean Corpuscular Hemoglobin 30.8 pg (27.0-31.0); Mean Corpuscular Volume 91.9 fL (78.0-98.0); Mean Platelet Volume 7.8 fL (7.4-10.4); Platelet Count 149 thou/uL (130-400); RBC Distribution Width 11.6 % (11.5-14.5); Red Blood Cell (RBC) Count 3.77 mill/uL (4.70-6.10); White Blood Cell (WBC) Count 11.5 thou/uL (4.8-10.8)
[2021-01-16 11:34] LABS: Anion Gap 10 mmol/L (10-20); BUN (Urea Nitrogen) 27 mg/dL (8.4-25.7); Calc. Creatinine Clearance 66 mL/min (70-130); Calcium 9.6 mg/dL (7.8-10.44); Carbon Dioxide 26 mmol/L (23-31); Chloride 106 mmol/L (98-107); Glucose 176 mg/dL (83-110); Potassium 4.8 mmol/L (3.5-5.1); Sodium 137 mmol/L (136-145)
[2021-01-16 11:37] LABS: #Eosinphils 0.1 thou/uL (0.0-0.7); #Lymphocytes 4.7 thou/uL (1.20-3.40); #Monocytes 0.5 thou/uL (0.11-0.59); #Neutrophils 6.2 thou/uL (1.40-6.50); %Basophils 0.1 % (0.0-1.0); %Eosinophils 0.9 % (0.0-10.0); %Monocytes 4.2 % (0.0-10.0); %Neutrophils 53.7 % (42.0-75.0); Band 7 % (5-11); Lymphocytes 44 % (21-51); MDiff Complete? YES; Monocytes 5 % (0-10); Neutrophil 44 % (42-75); RBC Morphology Normal
[2021-01-16 13:21] LABS: INR-International Normal Ratio 1.2; PTT 31.1 sec (22.9-36.1); Prothrombin Time 15.6 sec (12.0-14.7)
[2021-01-16] MEDS ORDERED: CEFAZOLIN 2 GM, Admixture Fee 1 EACH in Sodium Chloride 0.9% 100 ML IVPB SCH (14:00)
[2021-01-16 16:29] LABS: Hemoglobin 11.1 g/dL (14.0-18.0)
[2021-01-16 16:37] LABS: Potassium 4.5 mmol/L (3.5-5.1)
[2021-01-16] MEDS: Insulin Regular 300 UNITS/3 ML VIAL SC PRN (19:48)
[2021-01-16] MEDS ORDERED: Famotidine/PF 20 mg/2ml Vial SLOW IVP SCH (21:00)
[2021-01-16] MEDS: ceFAZolin Sodium/D5W 2 GM in Premix Bag 1 BAG IVPB SCH (22:25)
[2021-01-17 04:51] LABS: Anion Gap 13 mmol/L (10-20); BUN (Urea Nitrogen) 25 mg/dL (8.4-25.7); Calc. Creatinine Clearance 59 mL/min (70-130); Calcium 8.5 mg/dL (7.8-10.44); Carbon Dioxide 23 mmol/L (23-31); Chloride 105 mmol/L (98-107); Glucose 128 mg/dL (83-110); Potassium 4.3 mmol/L (3.5-5.1); Sodium 137 mmol/L (136-145)
[2021-01-17 05:31] LABS: #Lymphocytes 1.9 thou/uL (1.20-3.40); #Monocytes 0.6 thou/uL (0.11-0.59); #Neutrophils 3.6 thou/uL (1.40-6.50); %Basophils 0.4 % (0.0-1.0); %Lymphocytes 31.4 % (21.0-51.0); %Monocytes 9.3 % (0.0-10.0); %Neutrophils 58.9 % (42.0-75.0); Hemoglobin 9.9 g/dL (14.0-18.0); Mean Corpuscular HGB CONC 32.5 g/dL (32.0-36.0); Mean Corpuscular Hemoglobin 30.6 pg (27.0-31.0); Mean Corpuscular Volume 94.1 fL (78.0-98.0); Mean Platelet Volume 8.2 fL (7.4-10.4); Platelet Count 106 thou/uL (130-400); Platelet Morphology Comment Appears Decreased; RBC Distribution Width 11.8 % (11.5-14.5); Red Blood Cell (RBC) Count 3.23 mill/uL (4.70-6.10); White Blood Cell (WBC) Count 6.2 thou/uL (4.8-10.8)
[2021-01-17] MEDS: Ketorolac Tromethamine 30 MG/ML VIAL IVP SCH ×3 (05:37→17:09)
[2021-01-17] MEDS: ceFAZolin Sodium/D5W 2 GM in Premix Bag 1 BAG IVPB SCH (05:38)
[2021-01-17] MEDS ORDERED: Milk Of Magnesia 30 ML UDCUP PO PRN (07:03)
[2021-01-17] MEDS ORDERED: Mineral Oil ENEMA PR PRN (07:03)
[2021-01-17] MEDS ORDERED: Zolpidem Tartrate 5 MG TAB PO PRN (07:03)
[2021-01-17] MEDS ORDERED: Nitroglycerin 0.4 MG TAB (25 Tab Bottle) SL PRN (07:03)
[2021-01-17] MEDS ORDERED: diphenhydrAMINE 25 MG CAP PO PRN (07:03)
[2021-01-17] MEDS ORDERED: HUMULIN R 100 UNITS in Sodium Chloride 0.9% 100 ML IVPB SCH (08:00)
[2021-01-17] MEDS: Famotidine 20 MG TAB PO SCH ×2 (08:41→21:05)
[2021-01-17] MEDS: Aspirin 325 MG TAB PO SCH (08:41)
[2021-01-17] MEDS: PARoxetine 20 MG TAB PO SCH (08:41)
[2021-01-17] MEDS: Ezetimibe 10 MG TAB PO SCH (08:41)
[2021-01-17] MEDS: Magnesium 2 GM/50 ML 2 GM in Premix Bag 1 BAG IVPB SCH (08:42)
[2021-01-17] MEDS: hydrALAZINE 20 MG/ML VIAL SLOW IVP PRN (17:02)
[2021-01-17] MEDS ORDERED: Carvedilol 3.125 MG TAB PO SCH (19:15)
[2021-01-17] MEDS: Dronedarone HCl 400 MG TAB PO SCH (21:05)
[2021-01-17] MEDS: traMADol HCl 50 MG TAB PO PRN (21:07)
[2021-01-18] MEDS: hydrALAZINE 20 MG/ML VIAL SLOW IVP PRN (00:35)
[2021-01-18] MEDS: Ketorolac Tromethamine 30 MG/ML VIAL IVP SCH ×7 (00:38→23:06)
[2021-01-18] MEDS ORDERED: Carvedilol 3.125 MG TAB PO SCH (09:00)
[2021-01-18] MEDS: Magnesium 2 GM/50 ML 2 GM in Premix Bag 1 BAG IVPB SCH (09:36)
[2021-01-18] MEDS: Famotidine 20 MG TAB PO SCH ×2 (09:37→21:40)
[2021-01-18] MEDS: Aspirin 325 MG TAB PO SCH (09:37)
[2021-01-18] MEDS: Ezetimibe 10 MG TAB PO SCH (09:37)
[2021-01-18] MEDS: Carvedilol 6.25 MG TAB PO SCH ×2 (09:37→21:39)
[2021-01-18] MEDS: Lisinopril 10 MG TAB PO SCH ×2 (09:37→21:40)
[2021-01-18] MEDS: Hydrochlorothiazide 25 MG TAB PO SCH (09:37)
[2021-01-18] MEDS: PARoxetine 20 MG TAB PO SCH (09:38)
[2021-01-18] MEDS: Dronedarone HCl 400 MG TAB PO SCH ×2 (09:38→21:39)
[2021-01-19] MEDS: Ketorolac Tromethamine 30 MG/ML VIAL IVP SCH ×2 (05:32→11:46)
[2021-01-19] MEDS: Aspirin 325 MG TAB PO SCH (09:58)
[2021-01-19] MEDS: Dronedarone HCl 400 MG TAB PO SCH ×2 (09:58→21:21)
[2021-01-19] MEDS: Ezetimibe 10 MG TAB PO SCH (09:58)
[2021-01-19] MEDS: Carvedilol 6.25 MG TAB PO SCH ×2 (09:58→21:20)
[2021-01-19] MEDS: Famotidine 20 MG TAB PO SCH ×2 (09:58→21:21)
[2021-01-19] MEDS: Hydrochlorothiazide 25 MG TAB PO SCH (09:59)
[2021-01-19] MEDS: PARoxetine 20 MG TAB PO SCH (09:59)
[2021-01-19] MEDS: Lisinopril 10 MG TAB PO SCH ×2 (09:59→21:21)
[2021-01-19] MEDS ORDERED: Furosemide 40 MG TAB PO SCH (10:30)
[2021-01-19] MEDS: Insulin Regular 300 UNITS/3 ML VIAL SC PRN ×2 (17:37→21:22)
[2021-01-19] MEDS: PITAVASTATIN PO SCH (21:22)
[2021-01-20] MEDS: traMADol HCl 50 MG TAB PO PRN ×3 (02:07→21:53)
[2021-01-20 05:02] LABS: Anion Gap 13 mmol/L (10-20); BUN (Urea Nitrogen) 24 mg/dL (8.4-25.7); Calc. Creatinine Clearance 77 mL/min (70-130); Calcium 8.4 mg/dL (7.8-10.44); Carbon Dioxide 22 mmol/L (23-31); Chloride 98 mmol/L (98-107); Glucose 162 mg/dL (83-110); Potassium 3.8 mmol/L (3.5-5.1); Sodium 129 mmol/L (136-145)
[2021-01-20] MEDS: Insulin Regular 300 UNITS/3 ML VIAL SC PRN ×3 (06:34→21:58)
[2021-01-20] MEDS ORDERED: PITAVASTATIN PO SCH (09:00)
[2021-01-20] MEDS: Furosemide 40 MG TAB PO SCH (09:17)
[2021-01-20] MEDS: PARoxetine 20 MG TAB PO SCH (09:18)
[2021-01-20] MEDS: Dronedarone HCl 400 MG TAB PO SCH (09:18)
[2021-01-20] MEDS: Carvedilol 6.25 MG TAB PO SCH ×2 (09:18→18:01)
[2021-01-20] MEDS: Famotidine 20 MG TAB PO SCH ×2 (09:18→21:52)
[2021-01-20] MEDS: Aspirin 325 MG TAB PO SCH (09:18)
[2021-01-20] MEDS: Hydrochlorothiazide 25 MG TAB PO SCH (09:18)
[2021-01-20] MEDS: Ezetimibe 10 MG TAB PO SCH (09:18)
[2021-01-20] MEDS: Lisinopril 10 MG TAB PO SCH (09:18)
[2021-01-20] MEDS: Polyethylene Glycol 3350 17 GM Packet PO SCH (09:19)
[2021-01-20] MEDS ORDERED: Amiodarone 150 MG in Dextrose 5% in Water 100 ML IVPB SCH (16:15)
[2021-01-20] MEDS: Amiodarone 450 MG in Dextrose 5% in Water 250 ML IVPB SCH (18:00)
[2021-01-20 18:09] LABS: ALT (SGPT) 21 U/L (8-55); AST (SGOT) 29 U/L (5-34); Albumin 3.1 g/dL (3.4-4.8); Alkaline Phosphatase 57 U/L (40-110); Bilirubin, Direct 0.3 mg/dL (0.1-0.3); Bilirubin, Total 0.7 mg/dL (0.2-1.2); Magnesium 1.6 mg/dL (1.6-2.6); Protein, Total 5.2 g/dL (5.8-8.1)
[2021-01-20] MEDS: Lisinopril 5 MG TAB PO SCH (21:52)
[2021-01-20] MEDS: PITAVASTATIN PO SCH (21:53)
[2021-01-21] MEDS: Hydrochlorothiazide 25 MG TAB PO SCH (09:06)
[2021-01-21] MEDS: Aspirin 325 MG TAB PO SCH (09:06)
[2021-01-21] MEDS: Carvedilol 6.25 MG TAB PO SCH ×2 (09:06→17:51)
[2021-01-21] MEDS: Polyethylene Glycol 3350 17 GM Packet PO SCH (09:07)
[2021-01-21] MEDS: PARoxetine 20 MG TAB PO SCH (09:07)
[2021-01-21] MEDS: Lisinopril 5 MG TAB PO SCH (09:07)
[2021-01-21] MEDS: Famotidine 20 MG TAB PO SCH ×2 (09:07→21:22)
[2021-01-21] MEDS: Furosemide 40 MG TAB PO SCH (09:07)
[2021-01-21] MEDS: Ezetimibe 10 MG TAB PO SCH (09:07)
[2021-01-21] MEDS: traMADol HCl 50 MG TAB PO PRN (09:09)
[2021-01-21] MEDS: Insulin Regular 300 UNITS/3 ML VIAL SC PRN ×3 (13:09→21:27)
[2021-01-21] MEDS ORDERED: Lisinopril 10 MG TAB PO SCH ×2 (13:45→21:00)
[2021-01-21] MEDS: Amiodarone 200 MG TAB PO SCH ×3 (16:25→21:22)
[2021-01-21] MEDS ORDERED: Amiodarone 200 MG TAB PO SCH (17:30)
[2021-01-21] MEDS: Amiodarone 450 MG in Dextrose 5% in Water 250 ML IVPB SCH (17:52)
[2021-01-21] MEDS ORDERED: Amiodarone 450 MG in Dextrose 5% in Water 250 ML IVPB SCH (18:30)
[2021-01-21] MEDS ORDERED: Lisinopril 5 MG TAB PO SCH (21:00)
[2021-01-21] MEDS: PITAVASTATIN PO SCH (21:26)
[2021-01-22 05:29] LABS: #Eosinphils 0.1 thou/uL (0.0-0.7); #Lymphocytes 1.7 thou/uL (1.20-3.40); #Monocytes 0.8 thou/uL (0.11-0.59); #Neutrophils 2.6 thou/uL (1.40-6.50); %Basophils 0.4 % (0.0-1.0); %Eosinophils 1.8 % (0.0-10.0); %Lymphocytes 33.5 % (21.0-51.0); %Monocytes 14.8 % (0.0-10.0); %Neutrophils 49.6 % (42.0-75.0); Hemoglobin 10.1 g/dL (14.0-18.0); Mean Corpuscular HGB CONC 33.2 g/dL (32.0-36.0); Mean Corpuscular Hemoglobin 31.2 pg (27.0-31.0); Mean Corpuscular Volume 93.9 fL (78.0-98.0); Mean Platelet Volume 7.6 fL (7.4-10.4); Platelet Count 179 thou/uL (130-400); RBC Distribution Width 11.7 % (11.5-14.5); Red Blood Cell (RBC) Count 3.22 mill/uL (4.70-6.10); White Blood Cell (WBC) Count 5.2 thou/uL (4.8-10.8)
[2021-01-22 06:01] LABS: Anion Gap 15 mmol/L (10-20); BUN (Urea Nitrogen) 21 mg/dL (8.4-25.7); Calc. Creatinine Clearance 66 mL/min (70-130); Calcium 9.1 mg/dL (7.8-10.44); Carbon Dioxide 26 mmol/L (23-31); Chloride 98 mmol/L (98-107); Glucose 161 mg/dL (83-110); Potassium 3.5 mmol/L (3.5-5.1); Sodium 135 mmol/L (136-145)
[2021-01-22] MEDS: Ezetimibe 10 MG TAB PO SCH (09:37)
[2021-01-22] MEDS: Hydrochlorothiazide 25 MG TAB PO SCH (09:37)
[2021-01-22] MEDS: Aspirin 325 MG TAB PO SCH (09:38)
[2021-01-22] MEDS: Amiodarone 200 MG TAB PO SCH ×2 (09:38→20:43)
[2021-01-22] MEDS: Furosemide 40 MG TAB PO SCH (09:38)
[2021-01-22] MEDS: Famotidine 20 MG TAB PO SCH ×2 (09:38→20:43)
[2021-01-22] MEDS: PARoxetine 20 MG TAB PO SCH (09:39)
[2021-01-22] MEDS: Carvedilol 6.25 MG TAB PO SCH (09:40)
[2021-01-22] MEDS: Polyethylene Glycol 3350 17 GM Packet PO SCH (09:40)
[2021-01-22] MEDS: Insulin Regular 300 UNITS/3 ML VIAL SC PRN ×2 (12:34→20:47)
[2021-01-22 13:23] LABS: Actual Bicarbonate (HCO3a) 22.8 mEq/L (22-28); Analyzer IN Cardio OR; Base Excess (BEa) -3.3 mEq/L (-2.0 to +3.0); CO2 Tension 45.7 mmHg (35.0-45.0); Calcium, Ionized (arterial) 1.34 mmol/L (1.12-1.30); Carboxyhemoglobin (COHb) 0.2 gm% (0.0-3.0); Hemoglobin (Hb) 10.9 g/dL (14.0-18.0); O2 Tension (PaO2), arterial 282.2 mmHg (> 60.0); Potassium - ABG Lab 4.59 mmol/L (3.70-5.30); pH, Arterial 7.32 (7.35-7.45)
[2021-01-22 13:23] LABS: Actual Bicarbonate (HCO3a) 22.9 mEq/L (22-28); Analyzer IN Cardio OR; Base Excess (BEa) -0.9 mEq/L (-2.0 to +3.0); CO2 Tension 34.4 mmHg (35.0-45.0); Calcium, Ionized (arterial) 0.98 mmol/L (1.12-1.30); Carboxyhemoglobin (COHb) 0.3 gm% (0.0-3.0); Hemoglobin (Hb) 9.2 g/dL (14.0-18.0); O2 Tension (PaO2), arterial 315.8 mmHg (> 60.0); Potassium - ABG Lab 4.81 mmol/L (3.70-5.30); pH, Arterial 7.44 (7.35-7.45)
[2021-01-22 13:23] LABS: Actual Bicarbonate (HCO3a) 21.9 mEq/L (22-28); Analyzer IN Cardio OR; Base Excess (BEa) -3.3 mEq/L (-2.0 to +3.0); Calcium, Ionized (arterial) 1.17 mmol/L (1.12-1.30); Carboxyhemoglobin (COHb) 0.1 gm% (0.0-3.0); Hemoglobin (Hb) 9.3 g/dL (14.0-18.0); O2 Tension (PaO2), arterial 257.5 mmHg (> 60.0); Potassium - ABG Lab 4.31 mmol/L (3.70-5.30); pH, Arterial 7.36 (7.35-7.45)
[2021-01-22 13:24] LABS: Actual Bicarbonate (HCO3a) 27.2 mEq/L (22-28); Analyzer IN Cardio OR; CO2 Tension 45.3 mmHg (35.0-45.0); Calcium, Ionized (arterial) 0.91 mmol/L (1.12-1.30); Carboxyhemoglobin (COHb) 0.1 gm% (0.0-3.0); O2 Tension (PaO2), arterial 331.5 mmHg (> 60.0); Potassium - ABG Lab 4.06 mmol/L (3.70-5.30)
[2021-01-22 13:24] LABS: Actual Bicarbonate (HCO3a) 23.7 mEq/L (22-28); Analyzer IN Cardio OR; Base Excess (BEa) -2.7 mEq/L (-2.0 to +3.0); CO2 Tension 48.1 mmHg (35.0-45.0); Carboxyhemoglobin (COHb) 0.6 gm% (0.0-3.0); Hemoglobin (Hb) 11.8 g/dL (14.0-18.0); O2 Tension (PaO2), arterial 149.1 mmHg (> 60.0); Potassium - ABG Lab 3.89 mmol/L (3.70-5.30); pH, Arterial 7.31 (7.35-7.45)
[2021-01-22 13:25] LABS: Actual Bicarbonate (HCO3a) 22.8 mEq/L (22-28); Analyzer IN Cardio OR; Base Excess (BEa) -3.8 mEq/L (-2.0 to +3.0); CO2 Tension 47.6 mmHg (35.0-45.0); Calcium, Ionized (arterial) 1.13 mmol/L (1.12-1.30); Carboxyhemoglobin (COHb) 0.5 gm% (0.0-3.0); O2 Tension (PaO2), arterial 430.2 mmHg (> 60.0); Potassium - ABG Lab 4.12 mmol/L (3.70-5.30); Puncture Site Arterial Line
[2021-01-22 13:25] LABS: Puncture Site Arterial Line
[2021-01-22 13:26] LABS: Puncture Site Arterial Line
[2021-01-22 13:26] LABS: Puncture Site Arterial Line
[2021-01-22 13:27] LABS: Puncture Site Arterial Line
[2021-01-22 13:27] LABS: Puncture Site Arterial Line
[2021-01-22] MEDS: PITAVASTATIN PO SCH (20:44)
[2021-01-23] MEDS: Insulin Regular 300 UNITS/3 ML VIAL SC PRN ×3 (05:54→21:50)
[2021-01-23] MEDS: Aspirin 325 MG TAB PO SCH (08:30)
[2021-01-23] MEDS: Ezetimibe 10 MG TAB PO SCH (08:31)
[2021-01-23] MEDS: PARoxetine 20 MG TAB PO SCH (08:31)
[2021-01-23] MEDS: Hydrochlorothiazide 25 MG TAB PO SCH (08:31)
[2021-01-23] MEDS: Amiodarone 200 MG TAB PO SCH ×2 (08:31→21:43)
[2021-01-23] MEDS: Famotidine 20 MG TAB PO SCH ×2 (08:31→21:43)
[2021-01-23] MEDS: Polyethylene Glycol 3350 17 GM Packet PO SCH (08:32)
[2021-01-23] MEDS: PITAVASTATIN PO SCH (21:43)
[2021-01-23] MEDS: hydrALAZINE 20 MG/ML VIAL SLOW IVP PRN (22:33)
[2021-01-24] MEDS: Insulin Regular 300 UNITS/3 ML VIAL SC PRN ×2 (05:46→12:20)
[2021-01-24] MEDS: Famotidine 20 MG TAB PO SCH (08:01)
[2021-01-24] MEDS: Amiodarone 200 MG TAB PO SCH (08:01)
[2021-01-24] MEDS: Polyethylene Glycol 3350 17 GM Packet PO SCH (08:01)
[2021-01-24] MEDS: Aspirin 325 MG TAB PO SCH (08:01)
[2021-01-24] MEDS: Ezetimibe 10 MG TAB PO SCH (08:01)
[2021-01-24] MEDS: PARoxetine 20 MG TAB PO SCH (08:01)
[2021-01-24 12:48] VITALS: TEMP 98.1
[2021-01-24 13:34] VITALS: BP 170/79
[2021-01-24 13:48] VITALS: BMI 28.3
== END 2021-01-24 16:16 | disposition home or self-care (01) | DRG 234 ==
LOC: SURG A 01-16 06:05 → CCU 01-16 09:35 → MERGE 01-16 10:45 → 2NO 01-17 10:37
PROVIDERS: ADMIT Thoracic Surgery (Cardiothoracic Vascular Surgery); ATTEND Thoracic Surgery (Cardiothoracic Vascular Surgery)
PROC: 02100Z9 Bypass Coronary Artery, One Artery from Left Internal Mammary, Open Approach (ICD-10-PCS; principal; 2021-01-16)
PROC: 021109W Bypass Coronary Artery, Two Arteries from Aorta with Autologous Venous Tissue, Open Approach (ICD-10-PCS; 2021-01-16)
PROC: 06BQ4ZZ Excision of Left Saphenous Vein, Percutaneous Endoscopic Approach (ICD-10-PCS; 2021-01-16)
PROC: 5A1221Z Performance of Cardiac Output, Continuous (ICD-10-PCS; 2021-01-16)
PROC: 02570ZK Destruction of Left Atrial Appendage, Open Approach (ICD-10-PCS; 2021-01-16)
DX: I25.10 Atherosclerotic heart disease of native coronary artery without angina pectoris (principal); I47.2 Ventricular tachycardia; Z20.822 Contact with and (suspected) exposure to COVID-19; I10 Essential (primary) hypertension; E78.5 Hyperlipidemia, unspecified; G43.909 Migraine, unspecified, not intractable, without status migrainosus; I73.9 Peripheral vascular disease, unspecified; H40.9 Unspecified glaucoma; M10.9 Gout, unspecified; M19.90 Unspecified osteoarthritis, unspecified site; I48.0 Paroxysmal atrial fibrillation; N40.0 Benign prostatic hyperplasia without lower urinary tract symptoms; F41.9 Anxiety disorder, unspecified; E11.51 Type 2 diabetes mellitus with diabetic peripheral angiopathy without gangrene; E78.00 Pure hypercholesterolemia, unspecified; E66.9 Obesity, unspecified; Z87.891 Personal history of nicotine dependence; Z95.0 Presence of cardiac pacemaker; Z68.28 Body mass index [BMI] 28.0-28.9, adult; Z79.84 Long term (current) use of oral hypoglycemic drugs; Z79.82 Long term (current) use of aspirin; Z79.01 Long term (current) use of anticoagulants; Z79.899 Other long term (current) drug therapy; Z88.7 Allergy status to serum and vaccine; Z88.8 Allergy status to other drugs, medicaments and biological substances
CPT/HCPCS: 36415; 36416; 36430; 71045; 80048; 80076; 82805; 82947; 83735; 84443; 85025; 85027; 85610; 85730; 86850; 86900; 86901; 93005; 93010; 93798; 94002; J0171; J0282; J0360; J0690; J1100; J1642; J1644; J1815; J1885; J2001; J2150; J2250; J2270; J2405; J2440; J2704; J2720; J3010; J3370; J3475; J3480; J3490; J7070; P9045; S0017; S0020; S0028; U0003; U0005

== ENCOUNTER 2021-02-18 15:04 | Inpatient (IN) | payer MEDICARE ==
[~2021-02-18 15:04] MED LIST: Iopamidol-370 76% 500 ML 1 ML ONE
[2021-02-18 15:53] LABS: #Eosinphils 0.1 thou/uL (0.0-0.7); #Lymphocytes 1.4 thou/uL (1.20-3.40); #Monocytes 0.6 thou/uL (0.11-0.59); %Basophils 0.6 % (0.0-1.0); %Eosinophils 1.6 % (0.0-10.0); %Lymphocytes 27.2 % (21.0-51.0); %Neutrophils 59.7 % (42.0-75.0); Hemoglobin 11.4 g/dL (14.0-18.0); Mean Corpuscular Hemoglobin 29.9 pg (27.0-31.0); Mean Corpuscular Volume 93.6 fL (78.0-98.0); Mean Platelet Volume 6.9 fL (7.4-10.4); Platelet Count 206 thou/uL (130-400); RBC Distribution Width 12.5 % (11.5-14.5); Red Blood Cell (RBC) Count 3.81 mill/uL (4.70-6.10)
[2021-02-18 16:16] LABS: ALT (SGPT) 16 U/L (8-55); AST (SGOT) 23 U/L (5-34); Albumin 3.4 g/dL (3.4-4.8); Alkaline Phosphatase 108 U/L (40-110); Anion Gap 14 mmol/L (10-20); BUN (Urea Nitrogen) 16 mg/dL (8.4-25.7); Bilirubin, Total 0.5 mg/dL (0.2-1.2); Calc. Creatinine Clearance 0 mL/min (70-130); Calcium 9.3 mg/dL (7.8-10.44); Carbon Dioxide 26 mmol/L (23-31); Chloride 105 mmol/L (98-107); Globulin 1.8 g/dL (2.4-3.5); Glucose 121 mg/dL (83-110); Potassium 4.8 mmol/L (3.5-5.1); Protein, Total 5.2 g/dL (5.8-8.1); Sodium 140 mmol/L (136-145)
[2021-02-18 16:38] LABS: CKMB 3.8 ng/mL (0-6.6)
[2021-02-18 17:21] LABS: Lipase 27 U/L (8-78); Magnesium 1.8 mg/dL (1.6-2.6)
[2021-02-18] MEDS ORDERED: Enoxaparin Sodium 100 MG/ML SYRINGE ONE (18:13)
[2021-02-18] MEDS ORDERED: Furosemide 20 MG/2 ML VIAL ONE (18:13)
[2021-02-19] MEDS ORDERED: Acetaminophen 325 MG TAB PO PRN (02:25)
[2021-02-19] MEDS ORDERED: Ondansetron PF 4 MG/2 ML Vial IVP PRN (02:25)
[2021-02-19] MEDS ORDERED: Furosemide 20 MG/2 ML VIAL SLOW IVP SCH (02:30)
[2021-02-19 04:15] LABS: #Lymphocytes 1.8 thou/uL (1.20-3.40); #Monocytes 0.5 thou/uL (0.11-0.59); #Neutrophils 2.9 thou/uL (1.40-6.50); %Basophils 0.5 % (0.0-1.0); %Eosinophils 0.9 % (0.0-10.0); %Neutrophils 54.6 % (42.0-75.0); Hemoglobin 11.5 g/dL (14.0-18.0); Mean Corpuscular HGB CONC 31.8 g/dL (32.0-36.0); Mean Corpuscular Volume 94.2 fL (78.0-98.0); Mean Platelet Volume 6.7 fL (7.4-10.4); Platelet Count 218 thou/uL (130-400); RBC Distribution Width 12.8 % (11.5-14.5); Red Blood Cell (RBC) Count 3.85 mill/uL (4.70-6.10); White Blood Cell (WBC) Count 5.3 thou/uL (4.8-10.8)
[2021-02-19] MEDS ORDERED: HumaLOG 300 UNITS/3 ML VIAL SC PRN (04:37)
[2021-02-19] MEDS ORDERED: Dextrose 5% in Water 1,000 ML IV PRN (04:37)
[2021-02-19] MEDS ORDERED: Dextrose 50% Abboject 50 ML SYRINGE SLOW IVP PRN (04:37)
[2021-02-19 04:39] LABS: Anion Gap 13 mmol/L (10-20); BUN (Urea Nitrogen) 16 mg/dL (8.4-25.7); Calc. Creatinine Clearance 61 mL/min (70-130); Calcium 10.1 mg/dL (7.8-10.44); Carbon Dioxide 31 mmol/L (23-31); Chloride 100 mmol/L (98-107); Glucose 126 mg/dL (83-110); Potassium 3.9 mmol/L (3.5-5.1); Sodium 140 mmol/L (136-145)
[2021-02-19 05:52] VITALS: BMI 29.4
[2021-02-19] MEDS: Furosemide 40 MG/4 ML VIAL SLOW IVP SCH ×2 (05:54→15:18)
[2021-02-19] MEDS ORDERED: Magnesium 2 GM/50 ML 2 GM in Premix Bag 1 BAG IVPB SCH (06:15)
[2021-02-19 07:07] LABS: Prothrombin Time 13.7 sec (12.0-14.7)
[2021-02-19 07:08] LABS: PTT 34.8 sec (22.9-36.1)
[2021-02-19] MEDS ORDERED: Enoxaparin Sodium 100 MG/ML SYRINGE SC SCH (09:00)
[2021-02-19 09:19] LABS: SARS-CoV-2 PCR by NAA Not Detected (NotDetected)
[2021-02-19] MEDS: Aspirin 325 mg Enteric Coated Tablet PO SCH (10:22)
[2021-02-19] MEDS: Amiodarone 200 MG TAB PO SCH ×2 (10:22→21:35)
[2021-02-19] MEDS: Enoxaparin Sodium 40 MG/0.4 ML SYRINGE SC SCH (10:22)
[2021-02-19 16:15] LABS: Fluid, Triglycerides 26 mg/dL (Not Available); Pleural Fluid, Amylase Less than 30 U/L (Not Available); Pleural Fluid, Glucose 158 mg/dL; Pleural Fluid, LDH 147 U/L (Not Available); Pleural Fluid, Protein 2.7 g/dL
[2021-02-19 16:25] LABS: RBC Count-Automated (BF) 18479 /cu.mm; WBC/Nucleated-Auto (BF) 2114 /cu.mm
[2021-02-19 16:29] LABS: Body Fluid Source Pleural Fluid; Clarity Cloudy/Turbid (Clear); Tube # EDTA
[2021-02-19 16:34] LABS: BF Segmented Neutrophils 14 %; Cell Count Non Hematic 46 %; Eosinophils 1 %; Lymphocytes 38 %
[2021-02-20 04:46] LABS: #Eosinphils 0.1 thou/uL (0.0-0.7); #Lymphocytes 1.3 thou/uL (1.20-3.40); #Monocytes 0.5 thou/uL (0.11-0.59); #Neutrophils 2.7 thou/uL (1.40-6.50); %Basophils 0.1 % (0.0-1.0); %Lymphocytes 28.4 % (21.0-51.0); %Neutrophils 58.5 % (42.0-75.0); Hemoglobin 11.5 g/dL (14.0-18.0); Mean Corpuscular Hemoglobin 29.3 pg (27.0-31.0); Mean Corpuscular Volume 94.4 fL (78.0-98.0); Platelet Count 198 thou/uL (130-400); RBC Distribution Width 12.7 % (11.5-14.5); Red Blood Cell (RBC) Count 3.94 mill/uL (4.70-6.10); White Blood Cell (WBC) Count 4.6 thou/uL (4.8-10.8)
[2021-02-20] MEDS: Furosemide 40 MG/4 ML VIAL SLOW IVP SCH ×2 (04:59→13:13)
[2021-02-20 05:02] LABS: Anion Gap 13 mmol/L (10-20); BUN (Urea Nitrogen) 19 mg/dL (8.4-25.7); Calc. Creatinine Clearance 64 mL/min (70-130); Calcium 9.1 mg/dL (7.8-10.44); Carbon Dioxide 29 mmol/L (23-31); Chloride 99 mmol/L (98-107); Glucose 149 mg/dL (83-110); Magnesium 1.7 mg/dL (1.6-2.6); Potassium 3.4 mmol/L (3.5-5.1); Sodium 138 mmol/L (136-145)
[2021-02-20] MEDS ORDERED: Potassium Chloride 20 MEQ TAB PO SCH (09:00)
[2021-02-20] MEDS: Aspirin 325 mg Enteric Coated Tablet PO SCH (09:06)
[2021-02-20] MEDS: Enoxaparin Sodium 40 MG/0.4 ML SYRINGE SC SCH (09:06)
[2021-02-20] MEDS: Amiodarone 200 MG TAB PO SCH ×2 (09:06→20:40)
[2021-02-20] MEDS: HumaLOG 300 UNITS/3 ML VIAL SC PRN (11:54)
[2021-02-21 04:47] LABS: #Eosinphils 0.1 thou/uL (0.0-0.7); #Lymphocytes 1.5 thou/uL (1.20-3.40); #Monocytes 0.5 thou/uL (0.11-0.59); #Neutrophils 2.5 thou/uL (1.40-6.50); %Basophils 0.1 % (0.0-1.0); %Eosinophils 3.1 % (0.0-10.0); %Lymphocytes 32.4 % (21.0-51.0); %Monocytes 10.1 % (0.0-10.0); %Neutrophils 54.3 % (42.0-75.0); Hemoglobin 11.9 g/dL (14.0-18.0); Mean Corpuscular HGB CONC 31.5 g/dL (32.0-36.0); Mean Corpuscular Hemoglobin 29.6 pg (27.0-31.0); Mean Corpuscular Volume 93.9 fL (78.0-98.0); Mean Platelet Volume 7.1 fL (7.4-10.4); Platelet Count 202 thou/uL (130-400); RBC Distribution Width 12.7 % (11.5-14.5); Red Blood Cell (RBC) Count 4.02 mill/uL (4.70-6.10); White Blood Cell (WBC) Count 4.7 thou/uL (4.8-10.8)
[2021-02-21 05:11] LABS: Anion Gap 12 mmol/L (10-20); BUN (Urea Nitrogen) 20 mg/dL (8.4-25.7); Calc. Creatinine Clearance 51 mL/min (70-130); Calcium 9.1 mg/dL (7.8-10.44); Carbon Dioxide 32 mmol/L (23-31); Chloride 96 mmol/L (98-107); Glucose 151 mg/dL (83-110); Magnesium 1.5 mg/dL (1.6-2.6); Potassium 3.4 mmol/L (3.5-5.1); Sodium 137 mmol/L (136-145)
[2021-02-21] MEDS ORDERED: Potassium Bicarbonate/Cit Ac 20 MEQ TAB PO SCH (08:00)
[2021-02-21] MEDS ORDERED: Magnesium 2 GM/50 ML 2 GM in Premix Bag 1 BAG IVPB SCH (08:00)
[2021-02-21] MEDS: Amiodarone 200 MG TAB PO SCH (09:11)
[2021-02-21] MEDS: Aspirin 325 mg Enteric Coated Tablet PO SCH (09:12)
[2021-02-21] MEDS: Enoxaparin Sodium 40 MG/0.4 ML SYRINGE SC SCH (09:12)
[2021-02-21] MEDS: HumaLOG 300 UNITS/3 ML VIAL SC PRN (11:11)
[2021-02-21 11:55] VITALS: BP 145/63; TEMP 98
[2021-02-22] MEDS ORDERED: FLU VACC QS2021-22(65YR UP)/PF 240 MCG/0.7 ML SYRINGE IM ONE (09:00)
== END 2021-02-21 14:38 | disposition home or self-care (01) | DRG 314 ==
LOC: ERS 15:04 → ERHOLD 18:26 → 2NO 20:41
PROVIDERS: ADMIT Internal Medicine; ATTEND Internal Medicine
PROC: 0W9B3ZZ Drainage of Left Pleural Cavity, Percutaneous Approach (ICD-10-PCS; principal; 2021-02-19)
DX: T82.898A Other specified complication of vascular prosthetic devices, implants and grafts, initial encounter (principal); I50.33 Acute on chronic diastolic (congestive) heart failure; J96.01 Acute respiratory failure with hypoxia; N17.9 Acute kidney failure, unspecified; J90 Pleural effusion, not elsewhere classified; I24.8 Other forms of acute ischemic heart disease; I11.0 Hypertensive heart disease with heart failure; Z66 Do not resuscitate; Z20.822 Contact with and (suspected) exposure to COVID-19; Z23 Encounter for immunization; I25.10 Atherosclerotic heart disease of native coronary artery without angina pectoris; E11.9 Type 2 diabetes mellitus without complications; E78.5 Hyperlipidemia, unspecified; N40.0 Benign prostatic hyperplasia without lower urinary tract symptoms; F41.9 Anxiety disorder, unspecified; I48.91 Unspecified atrial fibrillation; Z95.1 Presence of aortocoronary bypass graft; Z88.8 Allergy status to other drugs, medicaments and biological substances; Z88.7 Allergy status to serum and vaccine; Z79.84 Long term (current) use of oral hypoglycemic drugs; Z79.899 Other long term (current) drug therapy; Z79.82 Long term (current) use of aspirin; Z87.891 Personal history of nicotine dependence; Y83.8 Other surgical procedures as the cause of abnormal reaction of the patient, or of later complication, without mention of misadventure at the time of the procedure; E78.00 Pure hypercholesterolemia, unspecified
CPT/HCPCS: 36415; 36416; 71045; 71275; 80048; 80053; 82150; 82553; 82945; 83615; 83690; 83735; 83880; 84157; 84478; 84484; 85025; 85060; 85379; 85610; 85730; 87070; 87116; 87205; 87206; 88112; 88305; 89051; 93005; 93306; 93970; 96372; 96374; J1650; J1815; J1940; J3475; Q9967; U0003; U0005

== ENCOUNTER 2021-03-07 16:11 | Outpatient (CLI) | payer MEDICARE ==
[2021-03-08 11:23] LABS: SARS-CoV-2 PCR by NAA Not Detected (NotDetected)
== END 2021-03-07 16:12 | disposition home or self-care (01) ==
LOC: LABBT 16:11
PROVIDERS: ATTEND Internal Medicine Cardiovascular Disease
DX: Z01.812 Encounter for preprocedural laboratory examination (principal); Z20.822 Contact with and (suspected) exposure to COVID-19
CPT/HCPCS: U0003; U0005

== ENCOUNTER 2021-03-12 05:51 | Day surgery (SDC) | payer MEDICARE ==
[2021-03-11 10:10] VITALS: BMI 26.3
[2021-03-12] MEDS ORDERED: PROPOFOL 200 MG/20 ML VIAL ONE (07:46)
== END 2021-03-12 09:20 | disposition home or self-care (01) ==
LOC: CCL 05:51
PROVIDERS: ATTEND Internal Medicine Cardiovascular Disease
PROC: B24BZZ4 Ultrasonography of Heart with Aorta, Transesophageal (ICD-10-PCS; principal; 2021-03-12)
DX: I08.1 Rheumatic disorders of both mitral and tricuspid valves (principal); I70.0 Atherosclerosis of aorta; Z79.82 Long term (current) use of aspirin; Z79.84 Long term (current) use of oral hypoglycemic drugs; Z79.899 Other long term (current) drug therapy; Z88.7 Allergy status to serum and vaccine; Z88.8 Allergy status to other drugs, medicaments and biological substances; Z95.0 Presence of cardiac pacemaker; Z95.1 Presence of aortocoronary bypass graft
CPT/HCPCS: 93312; J2704